=== PATIENT | female | born 1980 | race Caucasian/White ===

== ENCOUNTER 2016-12-31 06:46 | Observation (INO) | payer BC ==
[2016-12-31] MEDS ORDERED: Dexamethasone 4 MG/ML 5 ML MDV ONE (06:54)
[2016-12-31] MEDS ORDERED: Ondansetron 4 MG/2 ML SDV ONE (06:54)
[2016-12-31] MEDS ORDERED: Sodium Chloride 0.9% 10 ML ONE (06:54)
[2016-12-31] MEDS ORDERED: ceFAZolin 1 GM Vial ONE (06:54)
[2016-12-31] MEDS ORDERED: HYDROmorphone 1 MG/ML Syringe ONE ×3 (06:54→10:17)
[2016-12-31] MEDS ORDERED: Midazolam 1 MG/ML 2 ML SDV ONE (06:55)
[2016-12-31] MEDS ORDERED: fentaNYL 250 MCG/5 ML SDV ONE (06:55)
[2016-12-31] MEDS ORDERED: Propofol 200 MG/20 ML SDV ONE (06:55)
[2016-12-31] MEDS ORDERED: Rocuronium 50 MG/5 ML Vial ONE (06:56)
[2016-12-31] MEDS ORDERED: Sodium Chloride 0.9% 10 ML Syringe FLUSH PRN ×2 (07:00→10:30)
[2016-12-31] MEDS ORDERED: Lidocaine 1%/Sod Bicarbonate in NS 8.4% 1 ML Syringe IV PRN (07:00)
[2016-12-31] MEDS ORDERED: Lactated Ringers 1,000 ML IV SCH (07:00)
[2016-12-31] MEDS ORDERED: Lidocaine 1% with EPINEPHrine 1:100,000 20 ML MDV ONE (07:29)
--- NOTE | 2016-12-31 07:48 | PCM.OPNOTE ---
- General Post-Op/Procedure Note Date of Surgery/Procedure: 12/31/16 Operative Procedure(s): Total vaginal hysterectomy Findings: Mobile anteverted uterus. Limited visualization of the bilateral ovaries, but grossly normal. Pre Op Diagnosis: Heavy menstrual bleeding Post-Op Diagnosis: Same Anesthesia Technique: General ET tube Primary Surgeon: Milagro Anand Secondary Surgeon: Mckenna Henriquez Anesthesia Provider: Gris Gerber Pathology: Cervix and uterus sent to pathology Fluid Replacement, Intraop: 2,500 Output, Urine Amount: 240 EBL in mLs: 400 Complications: None Condition: Good Free Text/Narrative:: The risks, benefits, indications, potential complications, and alternatives were explained to the patient and informed consent obtained. The patient was taken to the Operating Room where general anesthesia was induced without complication and found to be adequate. The patient was placed in dorsal lithotomy with Yared stirrups and an exam under anesthesia revealed the findings detailed above. The patient was then prepped and draped in the usual sterile fashion. A fink catheter was placed into the bladder. A weighted speculum was placed in the vagina, and the cervix was grasped with a double tooth tenaculum. The cervix was injected circumferentially with 20 mL of 1% lidocaine with epinephrine. The cervix was then circumferentially incised with a scalpel. The posterior cul-de-sac was entered sharply without difficulty. An 0-Vicryl pop-off suture was placed posteriorly to include the posterior vaginal mucosa and the posterior peritoneum. The short weighted speculum was replaced with a long weighted speculum into the peritoneal cavity posteriorly. The bladder was dissected away from the pubovesical cervical fascia anteriorly with a sponge and blunt dissection. The uterosacral ligaments were grasped on either side, cauterized with the Ligasure, and transected. A raytec was used for further blunt dissection of the bladder away from the pubovesical cervical fascia and then the anterior cul de sac was entered sharply with Metzenbaum scissors. The cardinal ligaments were then serially clamped on both sides, cauterized, and transected in similar fashion. The uterine arteries were then clamped, cauterized, and transected. Hemostasis was adequate. Both cornua were then clamped, cauterized, and transected. These pedicles were also secured with a free tie of 0 vicryl. The uterus was removed. There was bleeding from the left pedicle and so this was grasped with an allis clamp and a suture of 0 vicryl was placed in a figure of eight style to secure hemostasis. The posterior peritoneum was then closed with a running, locked 0 vicryl suture. Irrigation of surgical pedicles performed again. Hemostasis seemed adequate. Marcelino-seal placed along the pedicles. The vaginal cuff was closed in a running locked fashion with 0-Vicryl. Hemostasis was noted. All sponge, lap, needle, and instrument counts were correct x 2. The patient tolerated the procedure well and there were no complications.
--- NOTE | 2016-12-31 07:54 | PCM.PREANE ---
Preanesthetic Assessment - Anesthesia/Transfusion/Family Hx Anesthesia History: Prior Anesthesia Without Reaction Type of Anesthesia Reaction: Other (see below) Family History of Anesthesia Reaction: No Type of Transfusion Reactions: Reports: Unknown - Review of Systems General: No Symptoms Pulmonary: No Symptoms, Other (smoker, asthma) Cardiovascular: No Symptoms Gastrointestinal: No symptoms Neurological: No Symptoms Other: Reports: Depression - Physical Assessment NPO Status Date: 12/31/16 NPO Status Time: 22:30 O2 Sat by Pulse Oximetry: 98 Respiratory Rate: 16 Vital Signs: Last Vital Signs Temp 36.3 C 12/31/16 07:00 Pulse 92 12/31/16 07:00 Resp 16 12/31/16 07:00 BP 141/51 H 12/31/16 07:00 Pulse Ox 98 12/31/16 07:00 Height: 1.57 m Weight: 93.894 kg ASA Class: 2 Mental Status: Alert & Oriented x3 Airway Class: Mallampati = 2 Dentition: Reports: Normal Dentition Thyro-Mental Finger Breadths: 3 Mouth Opening Finger Breadths: 3 ROM/Head Extension: Full Lungs: Clear to auscultation, Normal respiratory effort Cardiovascular: Regular Rate, Regular Rhythm - Lab Values: Laboratory Last Values WBC 9.81 K/mm3 (3.98-10.04) 12/31/16 07:15 RBC 4.70 M/mm3 (3.98-5.22) 12/31/16 07:15 Hgb 14.2 gm/L (11.2-15.7) 12/31/16 07:15 Hct 42.5 % (34.1-44.9) 12/31/16 07:15 MCV 90.4 fl (79.4-94.8) 12/31/16 07:15 MCH 30.2 pg (25.6-32.2) 12/31/16 07:15 MCHC 33.4 g/dl (32.2-35.5) 12/31/16 07:15 RDW Std Deviation 45.8 fL (36.4-46.3) 12/31/16 07:15 Plt Count 286 K/mm3 (182-369) 12/31/16 07:15 MPV 10.2 fl (9.4-12.3) 12/31/16 07:15 Neut % (Auto) 61.4 % (34.0-71.1) 12/31/16 07:15 Lymph % (Auto) 27.8 % (19.3-51.7) 12/31/16 07:15 [place] % (Auto) 8.1 % (4.7-12.5) 12/31/16 07:15 Eos % (Auto) 1.4 (0.7-5.8) 12/31/16 07:15 Baso % (Auto) 1.0 % (0.1-1.2) 12/31/16 07:15 Neut # 6.02 K/mm3 (1.56-6.13) 12/31/16 07:15 Lymph # 2.73 K/mm3 (1.18-3.74) 12/31/16 07:15 [place] # 0.79 K/mm3 (0.24-0.36) H 12/31/16 07:15 Eos # 0.14 K/mm3 (0.04-0.36) 12/31/16 07:15 Baso # 0.10 K/mm3 (0.01-0.08) H 12/31/16 07:15 Urine HCG, Qual Negative (NEGATIVE) 12/31/16 06:54 - Allergies Allergies/Adverse Reactions: Allergies Allergy/AdvReac Type Severity Reaction Status Date / Time IV Dye Allergy Rash Uncoded 12/30/16 12:31 - Blood Blood Available: No Product(s) Available: None - Anesthesia Plan Pre-Op Medication Ordered: None - Acknowledgements Anesthesia Type Planned: General Anesthesia Pt an Appropriate Candidate for the Planned Anesthesia: Yes Alternatives and Risks of Anesthesia Discussed w Pt/Guardian: Yes Pt/Guardian Understands and Agrees with Anesthesia Plan: Yes PreAnesthesia Questionnaire - Past Health History Medical/Surgical History: Denies Medical/Surgical History Respiratory History: Reports: Asthma Other Respiratory History: Moderate snoring [employer] 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 about two years ago Psychiatric History: Reports: Depression Other Dermatologic History: eczema on both medial calves - Past Surgical History Female Surgical History: Reports: Breast biopsy, Tubal ligation Musculoskeletal Surgical History: Reports: Shoulder surgery - SUBSTANCE USE Smoking Status *Q: Current Some Day Smoker Tobacco Use Within Last Twelve Months: Cigarettes Second Hand Smoke Exposure: Yes Days Per Week of Alcohol Use: 0 Number of Drinks Per Day: 0 Total Drinks Per Week: 0 Recreational Drug Use History: No - HOME MEDS Home Medications: Home Meds Venlafaxine [Effexor] 150 mg PO DAILY 02/12/14 [History] Albuterol [Ventolin HFA] 2 puff INH Q4H PRN 03/18/15 [History] oxyCODONE HCl/Acetaminophen [Percocet 5-325 mg Tablet] 1 - 2 tab PO Q6H PRN #15 tablet 04/03/15 [Rx] Zolpidem [Ambien] 5 mg PO BEDTIME 09/24/15 [History] Ketorolac [Toradol] 10 mg PO Q6H 11/04/15 [History] cloNIDine [Catapres] 0.1 mg PO Q8H 11/04/15 [History] Meloxicam [Mobic] 15 mg PO DAILY 12/30/16 [History] Naproxen Sodium [Aleve] 220 mg PO Q12HR PRN 12/30/16 [History] Venlafaxine [Effexor XR] 150 mg PO DAILY 12/30/16 [History] - CURRENT (IN HOUSE) MEDS Current Meds: Current Medications Lactated Ringer's (Ringers, Lactated) 1,000 mls @ 125 mls/hr IV ASDIRECTED WILD Stop: 12/31/16 23:00 Last Admin: 12/31/16 07:15 Dose: 125 mls/hr Lidocaine/Sodium Bicarbonate (Buffered Lidocaine 1% In Ns 8.4%) 0.25 ml IV ONETIME PRN PRN Reason: Prior to IV Start Stop: 12/31/16 18:00 Last Admin: 12/31/16 07:15 Dose: 0.25 ml Sodium Chloride (Saline Flush) 10 ml FLUSH ASDIRECTED PRN PRN Reason: Keep Vein Open Stop: 12/31/16 18:00 Discontinued Medications Cefazolin Sodium (Ancef) Confirm Administered Dose 2 gm .ROUTE .STK-MED ONE Stop: 12/31/16 06:55 Dexamethasone (Dexamethasone) Confirm Administered Dose 20 mg .ROUTE .STK-MED ONE Stop: 12/31/16 06:55 Fentanyl (Sublimaze) Confirm Administered Dose 250 mcg .ROUTE .STK-MED ONE Stop: 12/31/16 06:56 Hydromorphone HCl (Dilaudid) Confirm Administered Dose 1 mg .ROUTE .[facility] ONE Stop: 12/31/16 06:55 Sodium Chloride (Normal Saline) Confirm Administered Dose 10 mls @ as directed .ROUTE .STK-MED ONE Stop: 12/31/16 06:55 Lidocaine/Epinephrine (Xylocaine 1% With Epinephrine 1:100,000) Confirm Administered Dose 20 ml .ROUTE .[facility]-MED ONE Stop: 12/31/16 07:30 Midazolam HCl (Versed 1 Mg/Ml) Confirm Administered Dose 2 mg .ROUTE .[facility] ONE Stop: 12/31/16 06:56 Ondansetron HCl (Zofran) Confirm Administered Dose 4 mg .ROUTE .[facility] ONE Stop: 12/31/16 06:55 Propofol (Diprivan 20 Ml) Confirm Administered Dose 200 mg .ROUTE .[facility] ONE Stop: 12/31/16 06:56 Rocuronium [place] (Zemuron) Confirm Administered Dose 50 mg .ROUTE .[facility] ONE Stop: 12/31/16 06:57 Preanesthetic Assessment - ANESTHESIA/TRANSFUSION/FAMILY HX Anesthesia/Transfusion History: Prior Anesthesia Family History of Anesthesia Reaction: No Intubation History: Unknown - PHYSICAL ASSESSMENT O2 Sat by Pulse Oximetry: 98 RR: 16 Vital Signs: Last Vital Signs Temp 36.3 C 12/31/16 07:00 Pulse 92 12/31/16 07:00 Resp 16 12/31/16 07:00 BP 141/51 H 12/31/16 07:00 Pulse Ox 98 12/31/16 07:00 Height: 1.57 m Weight: 93.894 kg NPO Status Date: 12/31/16 NPO Status Time: 22:30 - LAB Values: Laboratory Last Values WBC 9.81 K/mm3 (3.98-10.04) 12/31/16 07:15 RBC 4.70 M/mm3 (3.98-5.22) 12/31/16 07:15 Hgb 14.2 gm/L (11.2-15.7) 12/31/16 07:15 Hct 42.5 % (34.1-44.9) 12/31/16 07:15 MCV 90.4 fl (79.4-94.8) 12/31/16 07:15 MCH 30.2 pg (25.6-32.2) 12/31/16 07:15 MCHC 33.4 g/dl (32.2-35.5) 12/31/16 07:15 RDW Std Deviation 45.8 fL (36.4-46.3) 12/31/16 07:15 Plt Count 286 K/mm3 (182-369) 12/31/16 07:15 MPV 10.2 fl (9.4-12.3) 12/31/16 07:15 Neut % (Auto) 61.4 % (34.0-71.1) 12/31/16 07:15 Lymph % (Auto) 27.8 % (19.3-51.7) 12/31/16 07:15 [place] % (Auto) 8.1 % (4.7-12.5) 12/31/16 07:15 Eos % (Auto) 1.4 (0.7-5.8) 12/31/16 07:15 Baso % (Auto) 1.0 % (0.1-1.2) 12/31/16 07:15 Neut # 6.02 K/mm3 (1.56-6.13) 12/31/16 07:15 Lymph # 2.73 K/mm3 (1.18-3.74) 12/31/16 07:15 [place] # 0.79 K/mm3 (0.24-0.36) H 12/31/16 07:15 Eos # 0.14 K/mm3 (0.04-0.36) 12/31/16 07:15 Baso # 0.10 K/mm3 (0.01-0.08) H 12/31/16 07:15 Urine HCG, Qual Negative (NEGATIVE) 12/31/16 06:54 - ALLERGIES Allergies/Adverse Reactions: Allergies Allergy/AdvReac Type Severity Reaction Status Date / Time IV Dye Allergy Rash Uncoded 12/30/16 12:31
[2016-12-31] MEDS ORDERED: Lactated Ringers 1,000 ML ONE (08:40)
[2016-12-31] MEDS ORDERED: fentaNYL 100 MCG/2 ML SDV IVPUSH PRN (08:51)
[2016-12-31] MEDS ORDERED: Metoclopramide 10 MG/2 ML SDV IVPUSH PRN (08:51)
[2016-12-31] MEDS ORDERED: HYDROmorphone 0.5 MG/0.5 ML Syringe IVPUSH PRN (08:51)
[2016-12-31] MEDS ORDERED: Ondansetron 4 MG/2 ML SDV IVPUSH PRN ×2 (08:51→10:26)
[2016-12-31] MEDS ORDERED: Ketamine 500 mg/10 ML MDV ONE (09:00)
[2016-12-31] MEDS ORDERED: fentaNYL 100 MCG/2 ML SDV ONE (10:07)
--- NOTE | 2016-12-31 10:30 | PCM.POSTAN ---
POST ANESTHESIA ASSESSMENT - MENTAL STATUS Mental Status: alert, oriented - VITAL SIGNS Pulse Rate: 111 SaO2: 96 Resp Rate: 16 Blood Pressure: 142/96 Temperature: 36.5 C - RESPIRATORY Respiratory Status: respiratory rate WNL, airway patent, O2 saturation stable - CARDIOVASCULAR CV Status: pulse rate WNL, blood pressure stable - GASTROINTESTINAL GI Status: no symptoms - PAIN Pain Score: 5 (fentanyl given) - POST OP HYDRATION Hydration Status: adequate & stable
[2016-12-31] MEDS ORDERED: diphenhydrAMINE 50 MG/ML SDV IVPUSH ONE (11:04)
[2016-12-31] MEDS: diphenhydrAMINE 50 MG/ML SDV ONE ×2 (11:08→14:08)
[2016-12-31] MEDS: Albuterol/Ipratropium 3.0-0.5 MG/3 ML Neb Soln NEB SCH ×3 (12:30→21:50)
[2016-12-31] MEDS: Acetaminophen/oxyCODONE 325-5 MG Tab PO PRN ×3 (13:00→21:51)
[2016-12-31] MEDS ORDERED: Venlafaxine 150 MG Cap.ER PO SCH (13:15)
[2016-12-31] MEDS: Morphine 2 MG/ML Syringe IVPUSH PRN ×3 (15:38→21:03)
[2016-12-31] MEDS ORDERED: Docusate Sodium 100 MG Cap PO SCH (21:00)
[2017-01-01] MEDS: Morphine 2 MG/ML Syringe IVPUSH PRN ×2 (00:25→02:31)
[2017-01-01] MEDS: Acetaminophen/oxyCODONE 325-5 MG Tab PO PRN ×2 (02:30→06:17)
[2017-01-01] MEDS: Albuterol/Ipratropium 3.0-0.5 MG/3 ML Neb Soln NEB SCH (06:53)
--- NOTE | 2017-01-01 07:17 | PCM.SURGPN ---
- General Info Date of Service: 01/01/17 POD#: 1 Functional Status: Reports: pain controlled, tolerating diet, ambulating, urinating - Review of Systems General: Reports: No Symptoms Pulmonary: Reports: no symptoms Cardiovascular: Reports: No Symptoms Gastrointestinal: Reports: Abdominal pain Genitourinary: Reports: no symptoms Musculoskeletal: Reports: no symptoms - Patient Data Vitals - most recent: Last Vital Signs Temp 36.6 C 01/01/17 00:17 Pulse 84 01/01/17 06:55 Resp 18 01/01/17 00:17 BP 129/52 L 01/01/17 00:17 Pulse Ox 91 L 01/01/17 00:17 Weight - most recent: 96.162 kg I&O - last 24 hours: Intake & Output 12/31/16 01/01/17 01/01/17 22:59 06:59 14:59 Intake Total 520 Output Total 1850 1400 Balance -1330 -1400 Lab Results last 24 hrs: Laboratory Results - last 24 hr 12/31/16 12/31/16 12/31/16 Range/Units 07:15 07:15 07:15 WBC 9.81 (3.98-10.04) K/mm3 RBC 4.70 (3.98-5.22) M/mm3 Hgb 14.2 (11.2-15.7) gm/L Hct 42.5 (34.1-44.9) % MCV 90.4 (79.4-94.8) fl MCH 30.2 (25.6-32.2) pg MCHC 33.4 (32.2-35.5) g/dl RDW Std Deviation 45.8 (36.4-46.3) fL Plt Count 286 (182-369) K/mm3 MPV 10.2 (9.4-12.3) fl Neut % (Auto) 61.4 (34.0-71.1) % Lymph % (Auto) 27.8 (19.3-51.7) % [place] % (Auto) 8.1 (4.7-12.5) % Eos % (Auto) 1.4 (0.7-5.8) Baso % (Auto) 1.0 (0.1-1.2) % Neut # 6.02 (1.56-6.13) K/mm3 Lymph # 2.73 (1.18-3.74) K/mm3 [place] # 0.79 H (0.24-0.36) K/mm3 Eos # 0.14 (0.04-0.36) K/mm3 Baso # 0.10 H (0.01-0.08) K/mm3 Sodium 139 (136-145) mEq/L Potassium 4.2 (3.5-5.1) mEq/L Chloride 104 (98-107) mEq/L Carbon Dioxide 26 (21-32) mEq/L Anion Gap 13.2 (5-15) BUN 15 (7-18) mg/dL Creatinine 1.0 (0.55-1.02) mg/dL Est Cr Clr Drug Dosing 60.33 mL/min Estimated GFR (MDRD) > 60 (>60) mL/min BUN/Creatinine Ratio 15.0 (14-18) Glucose 108 H (74-106) mg/dL Calcium 8.7 (8.5-10.1) mg/dL Blood Type A POSITIVE Gel Antibody Screen Negative 12/31/16 01/01/17 01/01/17 Range/Units 20:05 05:02 05:02 WBC 18.22 H 21.98 H (3.98-10.04) K/mm3 RBC 4.27 4.38 (3.98-5.22) M/mm3 Hgb 12.8 13.1 (11.2-15.7) gm/L Hct 39.4 41.2 (34.1-44.9) % MCV 92.3 94.1 (79.4-94.8) fl MCH 30.0 29.9 (25.6-32.2) pg MCHC 32.5 31.8 L (32.2-35.5) g/dl RDW Std Deviation 46.1 47.1 H (36.4-46.3) fL Plt Count 270 302 (182-369) K/mm3 MPV 9.9 10.6 (9.4-12.3) fl Neut % (Auto) (34.0-71.1) % Lymph % (Auto) (19.3-51.7) % [place] % (Auto) (4.7-12.5) % Eos % (Auto) (0.7-5.8) Baso % (Auto) (0.1-1.2) % Neut # (1.56-6.13) K/mm3 Lymph # (1.18-3.74) K/mm3 [place] # (0.24-0.36) K/mm3 Eos # (0.04-0.36) K/mm3 Baso # (0.01-0.08) K/mm3 Sodium 141 (136-145) mEq/L Potassium 4.5 (3.5-5.1) mEq/L Chloride 105 (98-107) mEq/L Carbon Dioxide 30 (21-32) mEq/L Anion Gap 10.5 (5-15) BUN 12 (7-18) mg/dL Creatinine 0.9 (0.55-1.02) mg/dL Est Cr Clr Drug Dosing 67.03 mL/min Estimated GFR (MDRD) > 60 (>60) mL/min BUN/Creatinine Ratio 13.3 L (14-18) Glucose 113 H (74-106) mg/dL Calcium 8.7 (8.5-10.1) mg/dL Blood Type Gel Antibody Screen Med Orders - Current: Current Medications Albuterol/Ipratropium (Duoneb 3.0-0.5 Mg/3 Ml) 3 ml NEB Q6HRRT [facility] Last Admin: 01/01/17 06:53 Dose: 3 ml Docusate Sodium (Colace) 100 mg PO BID [facility] Last Admin: 12/31/16 21:03 Dose: 100 mg Metoclopramide HCl (Reglan) 10 mg IVPUSH ONETIME PRN PRN Reason: Nausea/Vomiting Morphine Sulfate (Morphine) 1 mg IVPUSH Q2H PRN PRN Reason: Pain (severe 7-10) Last Admin: 01/01/17 02:31 Dose: 1 mg Ondansetron HCl (Zofran) 4 mg IVPUSH Q4H PRN PRN Reason: Nausea/Vomiting Oxycodone/Acetaminophen (Percocet 325-5 Mg) 2 tab PO Q4H PRN PRN Reason: Pain (moderate 4-6) Last Admin: 01/01/17 06:17 Dose: 2 tab Venlafaxine 150 Mg (Cap.Er) 0 each PO DAILY [facility] Last Admin: 12/31/16 14:08 Dose: 1 each Sodium Chloride (Saline Flush) 10 ml FLUSH ASDIRECTED PRN PRN Reason: Keep Vein Open Discontinued Medications Cefazolin Sodium (Ancef) Confirm Administered Dose 2 gm .ROUTE .STK-MED ONE Stop: 12/31/16 06:55 Dexamethasone (Dexamethasone) Confirm Administered Dose 20 mg .ROUTE .ST-MED ONE Stop: 12/31/16 06:55 Diphenhydramine HCl (Benadryl) Confirm Administered Dose 50 mg .ROUTE .ST-MED ONE Stop: 12/31/16 10:58 Last Admin: 12/31/16 14:08 Dose: Not Given Diphenhydramine HCl (Benadryl) 25 mg IVPUSH ONETIME ONE Stop: 12/31/16 11:05 Last Admin: 12/31/16 11:00 Dose: 25 mg Fentanyl (Sublimaze) Confirm Administered Dose 250 mcg .ROUTE .ST-MED ONE Stop: 12/31/16 06:56 Fentanyl (Sublimaze) 50 mcg IVPUSH Q5M PRN PRN Reason: pain Last Admin: 12/31/16 10:48 Dose: 50 mcg Fentanyl (Sublimaze) Confirm Administered Dose 100 mcg .ROUTE .ST-MED ONE Stop: 12/31/16 10:08 Hydromorphone HCl (Dilaudid) Confirm Administered Dose 1 mg .ROUTE .ST-MED ONE Stop: 12/31/16 06:55 Hydromorphone HCl (Dilaudid) Confirm Administered Dose 1 mg .ROUTE .STK-MED ONE Stop: 12/31/16 08:41 Hydromorphone HCl (Dilaudid) 0.5 mg IVPUSH Q15M PRN PRN Reason: Pain (severe 7-10) Stop: 12/31/16 09:07 Hydromorphone HCl (Dilaudid) Confirm Administered Dose 1 mg .ROUTE .ST-MED ONE Stop: 12/31/16 10:18 Lactated Ringer's (Ringers, Lactated) 1,000 mls @ 125 mls/hr IV ASDIRECTED WILD Stop: 12/31/16 23:00 Last Admin: 12/31/16 07:15 Dose: 125 mls/hr Sodium Chloride (Normal Saline) Confirm Administered Dose 10 mls @ as directed .ROUTE .ST-MED ONE Stop: 12/31/16 06:55 Lactated Ringer's (Ringers, Lactated) Confirm Administered Dose 1,000 mls @ as directed .ROUTE .STK-MED ONE Stop: 12/31/16 08:41 Ketamine HCl (Ketalar) Confirm Administered Dose 500 mg .ROUTE .STK-MED ONE Stop: 12/31/16 09:01 Lidocaine/Epinephrine (Xylocaine 1% With Epinephrine 1:100,000) Confirm Administered Dose 20 ml .ROUTE .STK-MED ONE Stop: 12/31/16 07:30 Last Admin: 12/31/16 08:43 Dose: 15 ml Lidocaine/Sodium Bicarbonate (Buffered Lidocaine 1% In Ns 8.4%) 0.25 ml IV ONETIME PRN PRN Reason: Prior to IV Start Stop: 12/31/16 18:00 Last Admin: 12/31/16 07:15 Dose: 0.25 ml Midazolam HCl (Versed 1 Mg/Ml) Confirm Administered Dose 2 mg .ROUTE .STK-MED ONE Stop: 12/31/16 06:56 Ondansetron HCl (Zofran) Confirm Administered Dose 4 mg .ROUTE .STK-MED ONE Stop: 12/31/16 06:55 Ondansetron HCl (Zofran) 4 mg IVPUSH ONETIME PRN PRN Reason: Nausea/Vomiting Propofol (Diprivan 20 Ml) Confirm Administered Dose 200 mg .ROUTE .STK-MED ONE Stop: 12/31/16 06:56 Rocuronium [place] (Zemuron) Confirm Administered Dose 50 mg .ROUTE .STK-MED ONE Stop: 12/31/16 06:57 Sodium Chloride (Saline Flush) 10 ml FLUSH ASDIRECTED PRN PRN Reason: Keep Vein Open Stop: 12/31/16 18:00 - Exam General: alert, oriented, cooperative Lungs: Clear to auscultation, Normal respiratory effort Cardiovascular: Regular Rate, Regular Rhythm Abdomen: soft, no distension, tenderness (appropriate post op). No: rebound, guarding Extremities: no edema Skin: warm, dry, intact - Problem List & Annotations (1) Menorrhagia SNOMED Code(s): 337827358 Code(s): N92.0 - EXCESSIVE AND FREQUENT MENSTRUATION WITH REGULAR CYCLE Status: Acute Qualifiers: Menorrahagia type: premenopausal Qualified Code(s): N92.4 - Excessive bleeding in the premenopausal period (2) S/P vaginal hysterectomy SNOMED Code(s): 935124861, 546771873 Code(s): Z90.710 - ACQUIRED ABSENCE OF BOTH CERVIX AND UTERUS Status: Acute - Problem List Review Problem List Initiated/Reviewed/Updated: Yes - My Orders Last 24 Hours: Active Orders 24 hr Category Date Time Status Patient Status [ADT] Routine ADT 12/31/16 10:26 Active Antiembolic Devices [RC] PER UNIT ROUTINE Care 12/31/16 10:28 Active Intake and Output [RC] Q4HR Care 12/31/16 10:27 Active RT Aerosol Therapy [RC] .PRN Care 12/31/16 10:32 Active Ready for Discharge [RC] PER UNIT ROUTINE Care 01/01/17 07:16 Ordered Up ad Shu [RC] PER UNIT ROUTINE Care 12/31/16 10:27 Active Vital Signs [RC] Q4HR Care 12/31/16 10:26 Active Clear Liquid Diet [DIET] Diet 12/31/16 Lunch Active Regular Diet [DIET] Diet 12/31/16 Lunch Active PATIENT RETYPE [BBK] Routine Lab 12/31/16 07:15 Results TYPE AND SCREEN [BBK] Routine Lab 12/31/16 07:15 Results Acetaminophen/oxyCODONE [Percocet 325-5 MG] Med 12/31/16 10:26 Active 2 tab PO Q4H PRN Albuterol/Ipratropium [DuoNeb 3.0-0.5 MG/3 ML] Med 12/31/16 12:00 Active 3 ml NEB Q6HRRT Docusate Sodium [Colace] Med 12/31/16 21:00 Active 100 mg PO BID Metoclopramide [Reglan] Med 12/31/16 08:51 Active 10 mg IVPUSH ONETIME PRN Morphine Med 12/31/16 10:26 Active 1 mg IVPUSH Q2H PRN Ondansetron [Zofran] Med 12/31/16 10:26 Active 4 mg IVPUSH Q4H PRN Patient's Own Medication [Ptom] Med 12/31/16 13:15 Active 0 each PO DAILY Sodium Chloride 0.9% [Saline Flush] Med 12/31/16 10:30 Active 10 ml FLUSH ASDIRECTED PRN Convert IV to Saline Lock [OM.PC] Routine Oth 12/31/16 10:30 Ordered Medication Administration Instruction [OM.PC] Routine Oth 12/31/16 07:00 Ordered Peripheral IV Insertion Adult [OM.PC] Routine Oth 12/31/16 07:00 Ordered Sequential Compression Device [OM.PC] Per Unit Routine Oth 12/31/16 10:27 Ordered Resuscitation Status Routine Resus Stat 12/31/16 10:26 Ordered Medication Orders Albuterol/Ipratropium (Duoneb 3.0-0.5 Mg/3 Ml) 3 ml NEB Q6HRRT [facility] Last Admin: 01/01/17 06:53 Dose: 3 ml Admin: 12/31/16 21:50 Dose: 3 ml Admin: 12/31/16 17:41 Dose: 3 ml Admin: 12/31/16 12:30 Dose: 3 ml Docusate Sodium (Colace) 100 mg PO BID [facility] Last Admin: 12/31/16 21:03 Dose: 100 mg Metoclopramide HCl (Reglan) 10 mg IVPUSH ONETIME PRN PRN Reason: Nausea/Vomiting Morphine Sulfate (Morphine) 1 mg IVPUSH Q2H PRN PRN Reason: Pain (severe 7-10) Last Admin: 01/01/17 02:31 Dose: 1 mg Admin: 01/01/17 00:25 Dose: 1 mg Admin: 12/31/16 21:03 Dose: 1 mg Admin: 12/31/16 18:49 Dose: 1 mg Admin: 12/31/16 15:38 Dose: 1 mg Ondansetron HCl (Zofran) 4 mg IVPUSH Q4H PRN PRN Reason: Nausea/Vomiting Oxycodone/Acetaminophen (Percocet 325-5 Mg) 2 tab PO Q4H PRN PRN Reason: Pain (moderate 4-6) Last Admin: 01/01/17 06:17 Dose: 2 tab Admin: 01/01/17 02:30 Dose: 2 tab Admin: 12/31/16 21:51 Dose: 2 tab Admin: 12/31/16 17:45 Dose: 2 tab Admin: 12/31/16 13:00 Dose: 2 tab Venlafaxine 150 Mg (Cap.Er) 0 each PO DAILY [facility] Last Admin: 12/31/16 14:08 Dose: 1 each Sodium Chloride (Saline Flush) 10 ml FLUSH ASDIRECTED PRN PRN Reason: Keep Vein Open - Assessment Assessment (Free Text/Narrative):: 36 y/o woman POD#1 from [facility] for heavy menstrual bleeding - Plan Plan (Free Text/Narrative):: Patient kept overnight due to EBL which was thought to be ~400 cc. Starting Hb was 14 and last night down to 12. This morning back to 13. Overall stable and less than anticipated drop. VS stable and UOP more than adequate. Will discharge to home. Will follow up in clinic in 1 week.
--- NOTE | 2017-01-01 07:17 | PCM.DCSUM1 ---
Discharge Summary - Discharge Data Discharge Date: 01/01/17 Discharge Disposition: Home, Self-Care 01 Condition: Good - Discharge Diagnosis/Problem(s) (1) Menorrhagia SNOMED Code(s): 637866669 ICD Code: N92.0 - EXCESSIVE AND FREQUENT MENSTRUATION WITH REGULAR CYCLE Status: Acute Qualifiers: Menorrahagia type: premenopausal Qualified Code(s): N92.4 - Excessive bleeding in the premenopausal period (2) S/P vaginal hysterectomy SNOMED Code(s): 591941144, [id number] ICD Code: Z90.710 - ACQUIRED ABSENCE OF BOTH CERVIX AND UTERUS Status: Acute - Patient Summary/Data Operative Procedure(s) Performed: Total vaginal hysterectomy Complications: None Consults: None Recommended Follow-up Testing/Procedures: Follow up with Dr. Aannd in 1 week Hospital Course: 36 y/o woman admitted for planned TVH. This was notable for an estimated 400 cc EBL. Due to this higher EBL she was kept for observation. Her blood count remained stable and she did well. She was thus discharged home on POD#1. - Patient Instructions Diet: Regular Diet as Tolerated Activity: No Lifting Over 10 Pounds Activity, Other: Pelvic rest for 6 weeks Driving: Do Not Drive (While taking narcotics ) Showering/Bathing: May Shower, No Tub Bathing/Swimming Notify Provider of: Fever, Increased Pain, Swelling and Redness, Drainage, Nausea and/or Vomiting - Discharge Plan Prescriptions/Med Rec: Acetaminophen/oxyCODONE [Percocet 325-5 MG] 2 tab PO Q4H PRN #30 tablet PRN Reason: Pain Home Medications: Home Meds Albuterol [Ventolin HFA] 2 puff INH Q4H PRN 03/18/15 [History] Meloxicam [Mobic] 15 mg PO DAILY 12/30/16 [History] Venlafaxine [Effexor XR] 150 mg PO DAILY 12/30/16 [History] Acetaminophen/oxyCODONE [Percocet 325-5 MG] 2 tab PO Q4H PRN #30 tablet [Rx] Docusate Sodium [Colace] 100 mg PO BID cap 12/31/16 [Rx] Patient Handouts: Laparoscopically Assisted Vaginal Hysterectomy, Care After, Hysterectomy Information, [id number] Referrals: Milagro Anand MD [Primary Care Provider] - (1 week for early post op check. Call to schedule appointment.) - Discharge Summary/Plan Comment DC Time >30 min.: No - Patient Data Vitals - Most Recent: Last Vital Signs Temp 36.6 C 01/01/17 00:17 Pulse 84 01/01/17 06:55 Resp 18 01/01/17 00:17 BP 129/52 L 01/01/17 00:17 Pulse Ox 91 L 01/01/17 00:17 Weight - Most Recent: 96.162 kg I&O - Last 24 hours: Intake & Output 12/31/16 01/01/17 01/01/17 22:59 06:59 14:59 Intake Total 520 Output Total 1850 1400 Balance -1330 -1400 Lab Results - Last 24 hrs: Laboratory Results - last 24 hr 12/31/16 12/31/16 12/31/16 Range/Units 07:15 07:15 07:15 WBC 9.81 (3.98-10.04) K/mm3 RBC 4.70 (3.98-5.22) M/mm3 Hgb 14.2 (11.2-15.7) gm/L Hct 42.5 (34.1-44.9) % MCV 90.4 (79.4-94.8) fl MCH 30.2 (25.6-32.2) pg MCHC 33.4 (32.2-35.5) g/dl RDW Std Deviation 45.8 (36.4-46.3) fL Plt Count 286 (182-369) K/mm3 MPV 10.2 (9.4-12.3) fl Neut % (Auto) 61.4 (34.0-71.1) % Lymph % (Auto) 27.8 (19.3-51.7) % Glynn % (Auto) 8.1 (4.7-12.5) % Eos % (Auto) 1.4 (0.7-5.8) Baso % (Auto) 1.0 (0.1-1.2) % Neut # 6.02 (1.56-6.13) K/mm3 Lymph # 2.73 (1.18-3.74) K/mm3 Glynn # 0.79 H (0.24-0.36) K/mm3 Eos # 0.14 (0.04-0.36) K/mm3 Baso # 0.10 H (0.01-0.08) K/mm3 Sodium 139 (136-145) mEq/L Potassium 4.2 (3.5-5.1) mEq/L Chloride 104 (98-107) mEq/L Carbon Dioxide 26 (21-32) mEq/L Anion Gap 13.2 (5-15) BUN 15 (7-18) mg/dL Creatinine 1.0 (0.55-1.02) mg/dL Est Cr Clr Drug Dosing 60.33 mL/min Estimated GFR (MDRD) > 60 (>60) mL/min BUN/Creatinine Ratio 15.0 (14-18) Glucose 108 H (74-106) mg/dL Calcium 8.7 (8.5-10.1) mg/dL Blood Type A POSITIVE Gel Antibody Screen Negative 12/31/16 01/01/17 01/01/17 Range/Units 20:05 05:02 05:02 WBC 18.22 H 21.98 H (3.98-10.04) K/mm3 RBC 4.27 4.38 (3.98-5.22) M/mm3 Hgb 12.8 13.1 (11.2-15.7) gm/L Hct 39.4 41.2 (34.1-44.9) % MCV 92.3 94.1 (79.4-94.8) fl MCH 30.0 29.9 (25.6-32.2) pg MCHC 32.5 31.8 L (32.2-35.5) g/dl RDW Std Deviation 46.1 47.1 H (36.4-46.3) fL Plt Count 270 302 (182-369) K/mm3 MPV 9.9 10.6 (9.4-12.3) fl Neut % (Auto) (34.0-71.1) % Lymph % (Auto) (19.3-51.7) % Glynn % (Auto) (4.7-12.5) % Eos % (Auto) (0.7-5.8) Baso % (Auto) (0.1-1.2) % Neut # (1.56-6.13) K/mm3 Lymph # (1.18-3.74) K/mm3 Glynn # (0.24-0.36) K/mm3 Eos # (0.04-0.36) K/mm3 Baso # (0.01-0.08) K/mm3 Sodium 141 (136-145) mEq/L Potassium 4.5 (3.5-5.1) mEq/L Chloride 105 (98-107) mEq/L Carbon Dioxide 30 (21-32) mEq/L Anion Gap 10.5 (5-15) BUN 12 (7-18) mg/dL Creatinine 0.9 (0.55-1.02) mg/dL Est Cr Clr Drug Dosing 67.03 mL/min Estimated GFR (MDRD) > 60 (>60) mL/min BUN/Creatinine Ratio 13.3 L (14-18) Glucose 113 H (74-106) mg/dL Calcium 8.7 (8.5-10.1) mg/dL Blood Type Gel Antibody Screen Med Orders - Current: Current Medications Albuterol/Ipratropium (Duoneb 3.0-0.5 Mg/3 Ml) 3 ml NEB Q6HRRT [facility] Last Admin: 01/01/17 06:53 Dose: 3 ml Docusate Sodium (Colace) 100 mg PO BID [facility] Last Admin: 12/31/16 21:03 Dose: 100 mg Metoclopramide HCl (Reglan) 10 mg IVPUSH ONETIME PRN PRN Reason: Nausea/Vomiting Morphine Sulfate (Morphine) 1 mg IVPUSH Q2H PRN PRN Reason: Pain (severe 7-10) Last Admin: 01/01/17 02:31 Dose: 1 mg Ondansetron HCl (Zofran) 4 mg IVPUSH Q4H PRN PRN Reason: Nausea/Vomiting Oxycodone/Acetaminophen (Percocet 325-5 Mg) 2 tab PO Q4H PRN PRN Reason: Pain (moderate 4-6) Last Admin: 01/01/17 06:17 Dose: 2 tab Venlafaxine 150 Mg (Cap.Er) 0 each PO DAILY [facility] Last Admin: 12/31/16 14:08 Dose: 1 each Sodium Chloride (Saline Flush) 10 ml FLUSH ASDIRECTED PRN PRN Reason: Keep Vein Open Discontinued Medications Cefazolin Sodium (Ancef) Confirm Administered Dose 2 gm .ROUTE .STK-MED ONE Stop: 12/31/16 06:55 Dexamethasone (Dexamethasone) Confirm Administered Dose 20 mg .ROUTE .STK-MED ONE Stop: 12/31/16 06:55 Diphenhydramine HCl (Benadryl) Confirm Administered Dose 50 mg .ROUTE .STK-MED ONE Stop: 12/31/16 10:58 Last Admin: 12/31/16 14:08 Dose: Not Given Diphenhydramine HCl (Benadryl) 25 mg IVPUSH ONETIME ONE Stop: 12/31/16 11:05 Last Admin: 12/31/16 11:00 Dose: 25 mg Fentanyl (Sublimaze) Confirm Administered Dose 250 mcg .ROUTE .STK-MED ONE Stop: 12/31/16 06:56 Fentanyl (Sublimaze) 50 mcg IVPUSH Q5M PRN PRN Reason: pain Last Admin: 12/31/16 10:48 Dose: 50 mcg Fentanyl (Sublimaze) Confirm Administered Dose 100 mcg .ROUTE .STK-MED ONE Stop: 12/31/16 10:08 Hydromorphone HCl (Dilaudid) Confirm Administered Dose 1 mg .ROUTE .STK-MED ONE Stop: 12/31/16 06:55 Hydromorphone HCl (Dilaudid) Confirm Administered Dose 1 mg .ROUTE .STK-MED ONE Stop: 12/31/16 08:41 Hydromorphone HCl (Dilaudid) 0.5 mg IVPUSH Q15M PRN PRN Reason: Pain (severe 7-10) Stop: 12/31/16 09:07 Hydromorphone HCl (Dilaudid) Confirm Administered Dose 1 mg .ROUTE .STK-MED ONE Stop: 12/31/16 10:18 Lactated Ringer's (Ringers, Lactated) 1,000 mls @ 125 mls/hr IV ASDIRECTED WILD Stop: 12/31/16 23:00 Last Admin: 12/31/16 07:15 Dose: 125 mls/hr Sodium Chloride (Normal Saline) Confirm Administered Dose 10 mls @ as directed .ROUTE .STK-MED ONE Stop: 12/31/16 06:55 Lactated Ringer's (Ringers, Lactated) Confirm Administered Dose 1,000 mls @ as directed .ROUTE .STK-MED ONE Stop: 12/31/16 08:41 Ketamine HCl (Ketalar) Confirm Administered Dose 500 mg .ROUTE .STK-MED ONE Stop: 12/31/16 09:01 Lidocaine/Epinephrine (Xylocaine 1% With Epinephrine 1:100,000) Confirm Administered Dose 20 ml .ROUTE .STK-MED ONE Stop: 12/31/16 07:30 Last Admin: 12/31/16 08:43 Dose: 15 ml Lidocaine/Sodium Bicarbonate (Buffered Lidocaine 1% In Ns 8.4%) 0.25 ml IV ONETIME PRN PRN Reason: Prior to IV Start Stop: 12/31/16 18:00 Last Admin: 12/31/16 07:15 Dose: 0.25 ml Midazolam HCl (Versed 1 Mg/Ml) Confirm Administered Dose 2 mg .ROUTE .STK-MED ONE Stop: 12/31/16 06:56 Ondansetron HCl (Zofran) Confirm Administered Dose 4 mg .ROUTE .STK-MED ONE Stop: 12/31/16 06:55 Ondansetron HCl (Zofran) 4 mg IVPUSH ONETIME PRN PRN Reason: Nausea/Vomiting Propofol (Diprivan 20 Ml) Confirm Administered Dose 200 mg .ROUTE .STK-MED ONE Stop: 12/31/16 06:56 Rocuronium Sheldon (Zemuron) Confirm Administered Dose 50 mg .ROUTE .STK-MED ONE Stop: 12/31/16 06:57 Sodium Chloride (Saline Flush) 10 ml FLUSH ASDIRECTED PRN PRN Reason: Keep Vein Open Stop: 12/31/16 18:00 *Q Meaningful Use (DIS) - VTE *Q VTE Criteria *Q: - Stroke *Q Stroke Criteria *Q: - AMI *Q AMI Criteria *Q:
[2017-01-01 08:31] VITALS: BP 121/72
--- NOTE | 2017-01-01 10:21 | PCM48HPAN ---
Post Anesthesia Note - EVALUATION WITHIN 48HRS OF ANESTHETIC Vital Signs in Normal Range: Yes Patient Participated in Evaluation: No (Pt discharged home.) Respiratory Function Stable: Yes Airway Patent: Yes Cardiovascular Function Stable: Yes Hydration Status Stable: Yes Pain Control Satisfactory: Yes Nausea and Vomiting Control Satisfactory: Yes Mental Status Recovered: Yes - COMMENTS/OBSERVATIONS Free Text/Narrative:: Pt was doing well via nurses. Patient was discharged at about 0830 this am.
== END 2017-01-01 08:30 | disposition home or self-care (01) ==
LOC: JD.SDS 06:46 → JD.OB 10:26
PROVIDERS: ADMIT Obstetrics & Gynecology; ATTEND Obstetrics & Gynecology
PROC: 0UT97ZZ Resection of Uterus, Via Natural or Artificial Opening (ICD-10-PCS; principal; 2016-12-31)
PROC: 0UTC7ZZ Resection of Cervix, Via Natural or Artificial Opening (ICD-10-PCS; 2016-12-31)
DX: N92.4 Excessive bleeding in the premenopausal period (principal); N94.6 Dysmenorrhea, unspecified; F17.210 Nicotine dependence, cigarettes, uncomplicated; F32.9 Major depressive disorder, single episode, unspecified; J45.909 Unspecified asthma, uncomplicated; N85.4 Malposition of uterus; Z90.710 Acquired absence of both cervix and uterus
CPT/HCPCS: 36415; 58260; 80048; 81025; 85025; 85027; 86850; 86900; 86901; 88307; 94640; 94664; A9270; G0378; J0690; J1100; J1170; J1200; J2250; J2270; J2405; J3010; J7120; 00944; J2704

== ENCOUNTER 2017-01-20 10:51 | Emergency (ER) | payer BC ==
[2017-01-20] MEDS ORDERED: methylPREDNISolone Sodium Succinate 125 MG/2 ML SDV IVPUSH ONE ×2 (11:01→11:16)
[2017-01-20] MEDS ORDERED: diphenhydrAMINE 50 MG/ML SDV IVPUSH ONE ×2 (11:03→11:14)
[2017-01-20] MEDS ORDERED: Famotidine 20 MG/2 ML SDV IVPUSH ONE (11:03)
--- NOTE | 2017-01-20 11:22 | EDM.PDOC ---
ED HPI Allergic Reaction - General Chief Complaint: Allergic Reaction Stated Complaint: Reaction to IV contrast Time Seen by Provider: 01/20/17 11:05 Source of Information: Reports: Patient, RN notes reviewed History Limitations: Reports: No limitations - History of Present Illness INITIAL COMMENTS - FREE TEXT/NARRATIVE: 36 year old female sent from [facility] for evaluation and treatment of reaction to IV contrast. She saw Melody Navarro [facility] MASTER at [place] [facility] today for abdominal pain. CT scan of abdomen was ordered. She has a known allergy to IV contrast and was pre-medicated with Prednisone 50mg PO and Benadryl. The dose of Benadryl is unknown. She developed itching immediately after the scan. She reports her throat feeling tight when she swallows. No shortness of breath, wheezing, cough, stridor, or rash. Her IV site is mildly red and itchy as well. She says her symptoms are similar to her previous reaction to IV contrast. - Related Data Allergies/ADRs: Allergies Allergy/AdvReac Type Severity Reaction Status Date / Time IV Dye Allergy Rash Uncoded 01/20/17 10:54 Home Meds: Home Meds Albuterol [Ventolin HFA] 2 puff INH Q4H PRN 03/18/15 [History] Meloxicam [Mobic] 15 mg PO DAILY 12/30/16 [History] Venlafaxine [Effexor XR] 150 mg PO DAILY 12/30/16 [History] Acetaminophen/oxyCODONE [Percocet 325-5 MG] 2 tab PO Q4H PRN #30 tablet [Rx] Docusate Sodium [Colace] 100 mg PO BID cap 12/31/16 [Rx] Simethicone 80 mg PO Q4H PRN 01/20/17 [History] predniSONE [Prednisone] 40 mg PO DAILY #6 tablet 01/20/17 [Rx] Past Medical History - Past Health History Medical/Surgical History: Denies Medical/Surgical History Respiratory History: Reports: Asthma Other Respiratory History: Moderate snoring [employer]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 about two years ago Psychiatric History: Reports: Depression Other Dermatologic History: eczema on both medial calves - Past Surgical History Respiratory Surgical History: Reports: None Female Surgical History: Reports: Breast biopsy, Tubal ligation Musculoskeletal Surgical History: Reports: Shoulder surgery Social & Family History - Family History Family Medical History: Noncontributory - Tobacco Use Smoking Status *Q: Current Every Day Smoker Years of Tobacco use: 20 Packs/Tins Daily: 0.5 Used Tobacco, but Quit: No Second Hand Smoke Exposure: Yes - Alcohol Use Days Per Week of Alcohol Use: 0 Number of Drinks Per Day: 0 Total Drinks Per Week: 0 - Recreational Drug Use Recreational Drug Use: No Drug Use in Last 12 Months: No ED ROS ALLERGIC REACTION - Review of Systems Review Of Systems: See Below Constitutional: Reports: no symptoms. Denies: fever HEENT: Reports: Other (sensation of throat swelling) Respiratory: Reports: No Symptoms. Denies: Shortness of Breath, Wheezing, Cough Cardiovascular: Reports: No symptoms. Denies: Chest pain, Lightheadedness GI/Abdominal: Reports: No symptoms. Denies: Nausea, Vomiting Skin: Reports: pruritis ED EXAM GENERAL NO PERIP PULSE - Physical Exam Exam: See Below Exam Limited By: No limitations General Appearance: alert, WD/WN, no apparent distress Throat/Mouth: Other (no oropharyngeal swelling or erythema) Neck: normal inspection, supple, non-tender, full range of motion Respiratory/Chest: no respiratory distress, lungs clear, no accessory muscle use , decreased breath sounds. No: wheezing, stridor Cardiovascular: normal peripheral pulses, regular rate, rhythm, no murmur Skin Exam: Warm, Dry, Intact, Other (chest and left AC iv site are red, no notable rash or hives appreciated. Patient is actively itching her chest during exam.) Course - Vital Signs Last Recorded V/S: Last Vital Signs Temp 97.0 F 01/20/17 10:54 Pulse 74 01/20/17 10:54 Resp 18 01/20/17 10:54 BP 152/94 H 01/20/17 10:54 Pulse Ox 99 01/20/17 10:54 - Orders/Labs/Meds Meds: Medications Discontinued Medications Generic Name Dose Route Start Last Admin Trade Name Freq PRN Reason Stop Dose Admin Diphenhydramine HCl 50 mg 01/20/17 11:03 01/20/17 11:38 Benadryl IVPUSH 01/20/17 11:04 Not Given ONETIME ONE Diphenhydramine HCl 25 mg 01/20/17 11:14 01/20/17 11:35 Benadryl IVPUSH 01/20/17 11:15 25 mg ONETIME ONE Administration Famotidine 20 mg 01/20/17 11:03 01/20/17 11:28 Pepcid IVPUSH 01/20/17 11:04 20 mg ONETIME ONE Administration Methylprednisolone Sodium Succinate 125 mg 01/20/17 11:01 01/20/17 11:38 Solu-Medrol IVPUSH 01/20/17 11:02 Not Given ONETIME ONE Methylprednisolone Sodium Succinate 62.5 mg 01/20/17 11:16 01/20/17 11:32 Solu-Medrol IVPUSH 01/20/17 11:17 62.5 mg ONETIME ONE Administration - Re-Assessments/Exams Free Text/Narrative Re-Assessment/Exam: Initial orders were for Benadryl 50mg IV and Solu-medrol 125mg IV. However, the patient received prednisone and benadryl at [facility] so ED doses were decreased. Pepcid IV also ordered. Exam and vitals are normal, epinephrine is not indicated at this time as patient is not having a full anaphylactic reaction. Will monitor for worsening symptoms. 1230 Patient is doing well. Itching has improved. Her throat feels better. No shortness of breath. Will discharge home with prescription for prednisone. Educated on return precautions. Discharge instructions as documented. Departure - Departure Time of Disposition: 12:23 Disposition: Home, Self-Care 01 Condition: good Clinical Impression: Allergic to IV contrast Allergic reaction to contrast dye Qualifiers: Encounter type: initial encounter Qualified Code(s): T50.8X5A - Adverse effect of diagnostic agents, initial encounter Prescriptions: predniSONE [Prednisone] 40 mg PO DAILY #6 tablet Referrals: PCP,None [Primary Care Provider] - Forms: ED Department Discharge Additional Instructions: Prednisone 40mg daily for 3 days, start tomorrow. Hold Meloxicam while on Prednisone Benadryl 25-50mg every 6 hours as needed for itching Pepcid 20mg daily for 3 days, start tomorrow morning Return to ER if your symptoms worsen, you develop difficultly breathing, or have any additional concerns. Follow-up with Melody Navarro as directed for the results of your CT scan.
[2017-01-20 12:47] VITALS: BP 113/81
== END 2017-01-20 12:44 | disposition home or self-care (01) ==
LOC: JD.ED 10:51
DX: L29.9 Pruritus, unspecified (principal); T50.8X5A Adverse effect of diagnostic agents, initial encounter; J45.909 Unspecified asthma, uncomplicated; F32.9 Major depressive disorder, single episode, unspecified; F17.210 Nicotine dependence, cigarettes, uncomplicated; Z98.890 Other specified postprocedural states; Z79.899 Other long term (current) drug therapy; Z91.041 Radiographic dye allergy status
CPT/HCPCS: 96374; 96375; 99283; J1200; J2930; 99284

== ENCOUNTER 2017-06-10 09:18 | Emergency (ER) | payer SELFPAY ==
[2017-06-10 09:31] VITALS: BP 135/93
[2017-06-10] MEDS ORDERED: predniSONE 20 MG Tab PO ONE (10:29)
[2017-06-10] MEDS ORDERED: Albuterol/Ipratropium 3.0-0.5 MG/3 ML Neb Soln NEB ONE (10:29)
--- NOTE | 2017-06-10 10:29 | EDM.PDOC ---
ED HPI GENERAL MEDICAL PROBLEM - General Chief Complaint: Skin Complaint Stated Complaint: COLD SX AND SORES ON HANDS Time Seen by Provider: 06/10/17 10:19 - History of Present Illness INITIAL COMMENTS - FREE TEXT/NARRATIVE: 36-year-old female presents emergency room with worsening hand rash and a worsening cough. The patient has been having recurrent eczema in her hands she was seen in the clinic for this about a month ago and was started on triamcinolone and this did clear up however the rash has come back the patient was started on oral prednisone for her asthma a couple weeks ago and just finished a taper of this her cough continues to worsen. She has quite a bit of sinus pressure and congestion especially on the right side. This is been going on for a couple of weeks. The patient is coughing up some yellow sputum. Patient denies she's had a hysterectomy. Bilateral Hand Pain Score (Numeric/FACES): 6 - Related Data Allergies Allergy/AdvReac Type Severity Reaction Status Date / Time IV Dye Allergy Rash Uncoded 06/10/17 09:26 Home Meds: Home Meds Albuterol [Ventolin HFA] 2 puff INH Q4H PRN 03/18/15 [History] Venlafaxine [Effexor XR] 150 mg PO DAILY 12/30/16 [History] Prednisone [IJD: predniSONE] 20 mg PO WITHBREAKFAST #20 tab 06/10/17 [Rx] Triamcinolone Acetonide [Triamcinolone Acetonide 0.5%] 30 gm TOP BID #1 tube [Rx] predniSONE [Prednisone] 20 mg PO Q24H #20 tablet 06/10/17 [Rx] Past Medical History - Past Health History Medical/Surgical History: Denies Medical/Surgical History Respiratory History: Reports: Asthma, Other (See Below) Other Respiratory History: Moderate snoring [employer] History: Reports: Dysfunctional Uterine Bleeding Other OB/BYN History: cyst to left breast. 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 about two years ago Neurological History: Reports: Concussion, Migraines Psychiatric History: Reports: Depression Dermatologic History: Reports: Eczema Other Dermatologic History: eczema on both medial calves - Past Surgical History Respiratory Surgical History: Reports: None Female Surgical History: Reports: Breast Biopsy, Tubal Ligation Musculoskeletal Surgical History: Reports: Shoulder Surgery Social & Family History - Family History Family Medical History: Noncontributory - Tobacco Use Smoking Status *Q: Current Every Day Smoker Years of Tobacco use: 20 Packs/Tins Daily: 0.7 Used Tobacco, but Quit: No Second Hand Smoke Exposure: Yes - Caffeine Use Caffeine Use: Reports: Coffee, Energy Drinks, Soda - Alcohol Use Days Per Week of Alcohol Use: 0 Number of Drinks Per Day: 0 Total Drinks Per Week: 0 - Recreational Drug Use Recreational Drug Use: No Drug Use in Last 12 Months: No ED ROS GENERAL - Review of Systems Review Of Systems: See Below Constitutional: Reports: No Symptoms HEENT: Reports: Rhinitis, Sinus Problem. Denies: Ear Pain Respiratory: Reports: Cough, Sputum Cardiovascular: Reports: No Symptoms GI/Abdominal: Reports: No Symptoms ED EXAM, SKIN/RASH Exam: See Below Exam Limited By: No Limitations General Appearance: Alert, No Apparent Distress Eye Exam: Bilateral Eye: Normal Inspection Ears: Normal External Exam, Normal Canal, Hearing Grossly Normal, Normal TMs Nose: Nasal Drainage, Clear Rhinorrhea, Other (He has marked right maxillary sinus tenderness with percussion to a lesser degree) Throat/Mouth: Normal Inspection, Normal Lips, Normal Teeth, Normal Gums, Normal Oropharynx, Normal Voice, No Airway Compromise, Other (Sinus drainage noted) Head: Atraumatic, Normocephalic Neck: Normal Inspection, Supple, Non-Tender, Full Range of Motion. No: Lymphadenopathy (L), Lymphadenopathy (R) Respiratory/Chest: No Respiratory Distress, Other (Decreased breath sounds expiratory wheezes noted) Cardiovascular: Regular Rate, Rhythm, No Edema, No Murmur Skin: Other (He has a significant rash on her lower legs worse on her hands mostly the palmar surfaces of her hands patient has a history of recurrent eczema and this is acting like this. I cannot exclude scabies at this point however there is no burrows noted in this looks very much like eczema however she's been treated with triamcinolone and other topicals since then.) Course - Vital Signs Last Recorded V/S: Last Vital Signs Temp 36.3 C 06/10/17 09:27 Pulse 95 06/10/17 09:27 Resp 12 06/10/17 09:27 BP 135/93 H 06/10/17 09:27 Pulse Ox 95 06/10/17 10:30 - Orders/Labs/Meds Orders: Active Orders 24 hr Category Date Time Status RT Aerosol Therapy [RC] ASDIRECTED Care 06/10/17 10:30 Active Chest 2V [CR] Stat Exams 06/10/17 10:30 Taken Meds: Medications Discontinued Medications Generic Name Dose Route Start Last Admin Trade Name Armando PRN Reason Stop Dose Admin Albuterol/Ipratropium 3 ml 06/10/17 10:29 06/10/17 10:41 Duoneb 3.0-0.5 Mg/3 Ml NEB 06/10/17 10:30 3 ml ONETIME ONE Administration Prednisone 80 mg 06/10/17 10:29 06/10/17 10:37 Prednisone PO 06/10/17 10:30 80 mg ONETIME ONE Administration - Re-Assessments/Exams Free Text/Narrative Re-Assessment/Exam: 06/10/17 11:43 Chest x-ray shows no acute changes. The patient is doing much better after nebulizer treatment. This point patient will be discharged home on an oral prednisone taper will start her on some triamcinolone for her rash she needs close clinical follow-up if this rash continues to be a problem a trial for scabies treatment would be reasonable however I think this is not likely at this point so we'll not start at this point. The patient is advised to use her albuterol at home on a more frequent basis. She'll use Eucerin cream on her hands every few hours and after washing her hands and will be started on triamcinolone. Departure - Departure Time of Disposition: 11:52 Disposition: Home, Self-Care 01 Clinical Impression: Eczema of both hands, Asthma exacerbation, Acute bronchitis - Discharge Information Prescriptions: Prednisone [IJD: predniSONE] 20 mg PO WITHBREAKFAST #20 tab predniSONE [Prednisone] 20 mg PO Q24H #20 tablet Triamcinolone Acetonide [Triamcinolone Acetonide 0.5%] 30 gm TOP BID #1 tube Referrals: PCP,None [Primary Care Provider] - Ama Browning PA-C [Physician Surveillance System Monitor] - Forms: ED Department Discharge Additional Instructions: Return to the emergency room with any questions or problems or worsening symptoms. Follow-up in the clinic on Tuesday or Tuesday for recheck call today for an appointment. Start Eucerin cream on her hands and legs over the rash 4-6 times a day and after washing. You been started on triamcinolone cream apply this twice daily. I believe there is one refill on the prescription. Use this for 2 weeks For your asthma use your nebulizers every 4-6 hours. In the clinic discussed been started on a topical steroid to help with long-term asthma control. - My Orders Last 24 Hours: My Active Orders 06/10/17 10:30 RT Aerosol Therapy [RC] ASDIRECTED Chest 2V [CR] Stat - Assessment/Plan Last 24 Hours: My Active Orders 06/10/17 10:30 RT Aerosol Therapy [RC] ASDIRECTED Chest 2V [CR] Stat
--- NOTE | 2017-06-10 11:45 | CR ---
Chest: Two views of the chest were obtained. Comparison: No prior chest x-ray, prior chest CT dated 06/04/13 is available. Heart size and mediastinum are within normal limits. Lungs are clear. Bony structures are within normal limits. Impression: 1. Nothing acute is identified on two-view chest x-ray. Diagnostic code #1
== END 2017-06-10 12:15 | disposition home or self-care (01) ==
LOC: JD.ED 09:18 → SUPCPDRO 09:18 → JD.ED 12:15
DX: J45.901 Unspecified asthma with (acute) exacerbation (principal); L30.9 Dermatitis, unspecified; F32.9 Major depressive disorder, single episode, unspecified; Z98.51 Tubal ligation status; Z98.890 Other specified postprocedural states; F17.210 Nicotine dependence, cigarettes, uncomplicated; Z90.710 Acquired absence of both cervix and uterus; Z91.041 Radiographic dye allergy status; Z79.899 Other long term (current) drug therapy
CPT/HCPCS: 71020; 94664; 99284; A9270; 99283

== ENCOUNTER 2017-09-06 20:18 | Emergency (ER) | payer MEDICAID, OTHER ==
[2017-09-06 20:26] VITALS: BP 170/105
--- NOTE | 2017-09-06 20:47 | EDM.PDOC ---
ED HPI GENERAL MEDICAL PROBLEM - General Chief Complaint: Lower Extremity Injury/Pain Stated Complaint: LEFT LEG PAIN Time Seen by Provider: 09/06/17 20:37 Source of Information: Reports: Patient History Limitations: Reports: No Limitations - History of Present Illness INITIAL COMMENTS - FREE TEXT/NARRATIVE: Patient is a 36 y/o female who presents to the E.D. complaining of left knee pain. States approximately 2 wks ago tripped on a child gate falling forward landing on the affected knee. Since then has been experiencing increased swelling, painful ROM, limited ROM, with intermittent locking of the knee. She has been ambulating on the affected knee with a limp present. No prior history of injury to the affected knee. Has been taking ibuprofen and ice with minimal relief. 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 about two years ago Neurological History: Reports: Concussion, Migraines Psychiatric History: Reports: Depression Dermatologic History: Reports: Eczema Other Dermatologic History: eczema on both medial calves - Past Surgical History Respiratory Surgical History: Reports: None Female Surgical History: Reports: Breast Biopsy, Tubal Ligation Musculoskeletal Surgical History: Reports: Shoulder Surgery Social & Family History - Family History Family Medical History: Noncontributory - Tobacco Use Smoking Status *Q: Current Every Day Smoker Years of Tobacco use: 20 Packs/Tins Daily: 0.5 Used Tobacco, but Quit: No Second Hand Smoke Exposure: Yes - Caffeine Use Caffeine Use: Reports: Coffee, Soda - Alcohol Use Days Per Week of Alcohol Use: 0 Number of Drinks Per Day: 0 Total Drinks Per Week: 0 - Recreational Drug Use Recreational Drug Use: No Drug Use in Last 12 Months: No Review of Systems - Review of Systems Review Of Systems: ROS reveals no pertinent complaints other than HPI. ED EXAM, GENERAL - Physical Exam Exam: See Below Exam Limited By: No Limitations General Appearance: Alert, WD/WN, No Apparent Distress Ears: Hearing Grossly Normal Nose: Normal Inspection Throat/Mouth: Normal Voice, No Airway Compromise Neck: Normal Inspection, Supple Respiratory/Chest: No Respiratory Distress, No Accessory Muscle Use Cardiovascular: Normal Peripheral Pulses, Regular Rate, Rhythm Peripheral Pulses: 2+: Posterior Tibial (L) Extremities: No Pedal Edema, Normal Capillary Refill, Other (Left knee: Mild swelling to person the right knee. Pain with palpation of the medial/lateral/ anterior aspect of the knee with no obvious bony antibiotics present. No ecchymosis present. Limited range of motion with flexion and extension of the knee secondary to pain. Unable to do an additional provocative testing secondary discomfort. No locking of the knee with flexion and extension. No sensory/motor deficits distally.) Neurological: Alert, CN II-XII Intact, Normal Cognition, No Motor/Sensory Deficits Psychiatric: Normal Affect, Normal Mood Skin Exam: Warm, Dry, Intact, Normal Color, No Rash Course - Vital Signs Last Recorded V/S: Last Vital Signs Temp 97.5 F 09/06/17 20:22 Pulse 90 09/06/17 20:22 Resp 18 09/06/17 20:22 BP 170/105 H 09/06/17 20:22 Pulse Ox 98 09/06/17 20:22 - Orders/Labs/Meds Orders: Active Orders 24 hr Category Date Time Status Knee 1V or 2V Lt [CR] Stat Exams 09/06/17 21:26 Taken Knee Min 4V Lt [CR] Stat Exams 09/06/17 20:41 Taken - Re-Assessments/Exams Free Text/Narrative Re-Assessment/Exam: Will obtain x-ray of the left knee. 09/06/17 21:27 4 view x-ray of the knee did not reveal any acute bony abnormalities. No sunrise view. Ordered one view of the knee to evaluate for a patellar abnormalities. Per nursing staff the patient had told the triage nurse that she injured her knee several months ago and was seen by a physician with a order for MRI to be conducted. In addition she was prescribed a knee brace which she has not obtained. Patient does not tell me this on initial examination. Awaiting for the sunrise view to be obtained. [place] view has been ordered. She has crutches at home. [place] view did not reveal any acute bony abnormalities. She will see her PCP to have MRI of the knee ordered again. Departure - Departure Time of Disposition: 21:50 Disposition: Home, Self-Care 01 Clinical Impression: Pain of left knee after injury - Discharge Information Instructions: Crutch Use, [id number], Knee Immobilizer, [id number] Referrals: PCP,None [Primary Care Provider] - Forms: ED Department Discharge Additional Instructions: You're to be nonweightbearing utilizing crutches and knee immobilizer to ambulate. Elevate the affected knee as needed to reduce any swelling and pain. Apply ice to affected area 3 times a day 20minutes in duration, do not place ice directly on the skin. Utilize ibuprofen and Tylenol in alternating fashion. Call and make an appt with Dr. Daigle Orthopedic Surgeon to be evaluated in the next 10 to 14 days. Return to the E.D. for any new or worsening symptoms. - My Orders Last 24 Hours: My Active Orders 09/06/17 20:41 Knee Min 4V Lt [CR] Stat 09/06/17 21:26 Knee 1V or 2V Lt [CR] Stat - Assessment/Plan Last 24 Hours: My Active Orders 09/06/17 20:41 Knee Min 4V Lt [CR] Stat 09/06/17 21:26 Knee 1V or 2V Lt [CR] Stat
--- NOTE | 2017-09-07 08:49 | CR ---
Left knee: Four views of the left knee were obtained. Comparison: No previous knee exam. Medial and lateral joint spaces are preserved. Small joint effusion is present. No acute fracture or other bony abnormality is is seen. Impression: 1. Small joint effusion. 2. No bony abnormality is is identified on left knee exam. Diagnostic code #2
--- NOTE | 2017-09-07 08:49 | CR ---
Left knee: [place] patellar view of the left knee was obtained. Comparison: Prior knee exam performed earlier on the same day (8:41 PM). Patellofemoral joint appears within normal limits. Impression: 1. Unremarkable sunrise patellar view. Diagnostic code #1
== END 2017-09-06 22:17 | disposition home or self-care (01) ==
LOC: JD.ED 20:18
DX: S89.92XA Unspecified injury of left lower leg, initial encounter (principal); F17.210 Nicotine dependence, cigarettes, uncomplicated; J45.909 Unspecified asthma, uncomplicated; F32.9 Major depressive disorder, single episode, unspecified; Z79.899 Other long term (current) drug therapy; Z91.041 Radiographic dye allergy status; W01.0XXA Fall on same level from slipping, tripping and stumbling without subsequent striking against object, initial encounter
CPT/HCPCS: 73560-26-LT; 73560-LT; 73564-26-LT; 73564-LT; 99283

== ENCOUNTER 2018-04-02 18:12 | Emergency (ER) | payer MEDICAID ==
[2018-04-02] MEDS ORDERED: HYDROmorphone 0.5 MG/0.5 ML SYRINGE IM ONE (20:09)
[2018-04-02] MEDS ORDERED: Promethazine 25 MG/ML SDV IM ONE (20:10)
[2018-04-02] MEDS ORDERED: Sodium Chloride 0.9% 10 ML Syringe FLUSH PRN (20:21)
[2018-04-02] MEDS ORDERED: HYDROmorphone 0.5 MG/0.5 ML SYRINGE IVPUSH ONE (20:23)
[2018-04-02] MEDS ORDERED: Promethazine 25 MG in Sodium Chloride 0.9% 50 ML IV ONE (20:23)
[2018-04-02] MEDS ORDERED: Sodium Chloride 0.9% 1,000 ML IV SCH (20:30)
--- NOTE | 2018-04-02 20:57 | EDM.PDOC ---
ED HPI GENERAL MEDICAL PROBLEM - General Chief Complaint: Gastrointestinal Problem Stated Complaint: VOMITING X 4 DAYS Time Seen by Provider: 04/02/18 20:00 Source of Information: Reports: Patient History Limitations: Reports: No Limitations - History of Present Illness INITIAL COMMENTS - FREE TEXT/NARRATIVE: This is a 37-year-old female that comes in today with complaints of vomiting, diarrhea and migraine headache for 4 days. She states she feels the vomiting started before the headache and then the migraine came after. She does have a history of migraines, but hasn't had an episode like this in quite some time. She states sleeping has made it better and therefore has been sleeping for many days and no [id number] medications have helped alleviate the pain. She stated she also tried Ibuprofen 800 with no relief. She does complain of having fever, chills, mild stomach pain, lightheadedness, generalized weakness, cough, and 5/10 headache pain with aura and light sensitivity. She describes her condition as feeling "flu-like". She denies any sick contacts, recent camping or hiking, travel outside the country, trauma, recent change in diet. 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 She does have a history of asthma and smoking and does complain of a cough but it is nonproductive. No other symptoms at this time. 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 about two years ago Neurological History: Reports: Concussion, Migraines Psychiatric History: Reports: Anxiety, Depression Dermatologic History: Reports: Eczema Other Dermatologic History: eczema on both medial calves - Past Surgical History Respiratory Surgical History: Reports: None Female Surgical History: Reports: Breast Biopsy, Tubal Ligation Musculoskeletal Surgical History: Reports: Shoulder Surgery Social & Family History - Family History Family Medical History: Noncontributory - Tobacco Use Smoking Status *Q: Current Every Day Smoker Years of Tobacco use: 20 Packs/Tins Daily: 0.5 - Caffeine Use Caffeine Use: Reports: Coffee - Recreational Drug Use Recreational Drug Use: No ED ROS GENERAL - Review of Systems Review Of Systems: See Below Constitutional: Reports: Fever, Chills, Weakness, Fatigue HEENT: Reports: Other (sensitivity to light) Respiratory: Reports: Cough. Denies: Shortness of Breath, Wheezing, Sputum Cardiovascular: Reports: No Symptoms GI/Abdominal: Reports: Abdominal Pain (mild, feels it's due to the vomiting), Diarrhea, Nausea, Vomiting. Denies: Bloody Stool, Hematemesis, Hematochezia : Reports: No Symptoms. Denies: Dysuria, Flank Pain, Frequency, Hematuria Neurological: Reports: Headache (02/23) Psychiatric: Reports: Agitation ED EXAM, GI/ABD - Physical Exam Exam: See Below Exam Limited By: No Limitations General Appearance: Alert, WD/WN, Mild Distress Eyes: Bilateral: Normal Appearance, EOMI Ears: Hearing Grossly Normal Head: Atraumatic, Normocephalic Respiratory/Chest: No Respiratory Distress, Lungs Clear, Normal Breath Sounds, No Accessory Muscle Use, Chest Non-Tender Cardiovascular: Normal Peripheral Pulses, Regular Rate, Rhythm, No Edema, No Gallop, No JVD, No Murmur, No Rub GI/Abdominal Exam: Soft, Non-Tender, No Organomegaly, No Distention, No Abnormal Bruit, No Mass, Pelvis Stable, Abnormal Bowel Sounds (hyperactive bowel sounds) Neurological: Alert, Oriented, CN II-XII Intact, Normal Cognition, Normal Gait, Normal Reflexes, No Motor/Sensory Deficits Psychiatric: Normal Affect, Normal Mood Course - Vital Signs Last Recorded V/S: Last Vital Signs Temp 97.9 F 04/02/18 18:18 Pulse 110 H 04/02/18 18:18 Resp 18 04/02/18 18:18 BP 135/88 04/02/18 18:18 Pulse Ox 96 04/02/18 18:18 - Orders/Labs/Meds Orders: Active Orders 24 hr Category Date Time Status Peripheral IV Care [RC] . DIRECTED Care 04/02/18 20:22 Active Sodium Chloride 0.9% [Normal Saline] 1,000 ml Med 04/02/18 20:30 Active IV ASDIRECTED Sodium Chloride 0.9% [Saline Flush] Med 04/02/18 20:21 Active 10 ml FLUSH ASDIRECTED PRN Peripheral IV Insertion Adult [OM.PC] Routine Oth 04/02/18 20:21 Ordered Medication Orders Sodium Chloride (Normal Saline) 1,000 mls @ 999 mls/hr IV ASDIRECTED WILD Last Admin: 04/02/18 20:33 Dose: 999 mls/hr Sodium Chloride (Saline Flush) 10 ml FLUSH ASDIRECTED PRN PRN Reason: Keep Vein Open Last Admin: 04/02/18 20:34 Dose: 10 ml Labs: Laboratory Tests 04/02/18 04/02/18 Range/Units 18:40 18:40 WBC 8.89 (3.98-10.04) K/mm3 RBC 4.74 (3.98-5.22) M/mm3 Hgb 14.5 (11.2-15.7) gm/L Hct 43.4 (34.1-44.9) % MCV 91.6 (79.4-94.8) fl MCH 30.6 (25.6-32.2) pg MCHC 33.4 (32.2-35.5) g/dl RDW Std Deviation 46.7 H (36.4-46.3) fL Plt Count 199 (182-369) K/mm3 MPV 9.6 (9.4-12.3) fl Neut % (Auto) 41.9 (34.0-71.1) % Lymph % (Auto) 46.8 (19.3-51.7) % [place] % (Auto) 7.3 (4.7-12.5) % Eos % (Auto) 1.8 (0.7-5.8) Baso % (Auto) 1.6 H (0.1-1.2) % Neut # (Auto) 3.73 (1.56-6.13) K/mm3 Lymph # (Auto) 4.16 H (1.18-3.74) K/mm3 [place] # (Auto) 0.65 H (0.24-0.36) K/mm3 Eos # (Auto) 0.16 (0.04-0.36) K/mm3 Baso # (Auto) 0.14 H (0.01-0.08) K/mm3 Manual Slide Review Abnormal smear Sodium 136 (136-145) mEq/L Potassium 4.1 (3.5-5.1) mEq/L Chloride 101 (98-107) mEq/L Carbon Dioxide 27 (21-32) mEq/L Anion Gap 12.1 (5-15) BUN 11 (7-18) mg/dL Creatinine 0.9 (0.55-1.02) mg/dL Est Cr Clr Drug Dosing 63.33 mL/min Estimated GFR (MDRD) > 60 (>60) mL/min BUN/Creatinine Ratio 12.2 L (14-18) Glucose 118 H (74-106) mg/dL Calcium 8.5 (8.5-10.1) mg/dL Total Bilirubin 0.3 (0.2-1.0) mg/dL AST 164 H (15-37) U/L ALT 140 H (14-59) U/L Alkaline Phosphatase 109 (46-116) U/L Total Protein 6.7 (6.4-8.2) g/dl Albumin 2.9 L (3.4-5.0) g/dl Globulin 3.8 gm/dL Albumin/Globulin Ratio 0.8 L (1-2) Meds: Medications Generic Name Dose Route Start Last Admin Trade Name Freq PRN Reason Stop Dose Admin Sodium Chloride 1,000 mls @ 999 mls/hr 04/02/18 20:30 04/02/18 20:33 Normal Saline IV 999 mls/hr ASDIRECTED WILD Administration Sodium Chloride 10 ml 04/02/18 20:21 04/02/18 20:34 Saline Flush FLUSH 10 ml ASDIRECTED PRN Administration Keep Vein Open Discontinued Medications Generic Name Dose Route Start Last Admin Trade Name Freq PRN Reason Stop Dose Admin Hydromorphone HCl 0.5 mg 04/02/18 20:09 04/02/18 20:34 Dilaudid IM 04/02/18 20:10 Not Given ONETIME ONE Hydromorphone HCl 0.5 mg 04/02/18 20:23 04/02/18 20:24 Dilaudid IVPUSH 04/02/18 20:24 0.5 mg ONETIME ONE Administration Promethazine HCl 25 mg/ Sodium 51 mls @ 100 mls/hr 04/02/18 20:23 04/02/18 20 :34 Chloride IV 04/02/18 20:53 100 mls/hr ONETIME ONE Administration Promethazine HCl 25 mg 04/02/18 20:10 04/02/18 20:34 Phenergan IM 04/02/18 20:11 Not Given ONETIME ONE - Re-Assessments/Exams Free Text/Narrative Re-Assessment/Exam: IV Fluids given as the patient has been vomiting all day. Dilaudid 0.5mg and Phenergan given for migraine and nausea. Ordered CBC, CMP. 04/02/18 21:50 Rechecked on Janet, she is still having 5/10 headache but her nausea has improved. I discussed the results of her lab work, which was unremarkable except for severely elevated liver enzymes. She admitted to heavy drinking in the past. No excessive Tylenol use at home. Unsure of hepatitis exposure but no symptoms. I explained that she should follow up with her PCP to investigate this further. She stated she understood and agreed. Will try sumatriptan for relief of migraine. 04/02/18 23:02 Dr. Jame Henriquez in to see patient. Per Dr. Henriquez, pt is still not having relief of the migraine but is feeling well enough that she is ready to go home. She was advised to go home and sleep and if the pain is no better in the morning to follow up with the walk-in clinic. Pt understands and agrees with this plan. Departure - Departure Time of Disposition: 23:00 Disposition: Home, Self-Care 01 Condition: Fair Clinical Impression: Migraine aura, persistent, intractable Nausea & vomiting Qualifiers: Vomiting type: unspecified Vomiting Intractability: unspecified Qualified Code( s): R11.2 - Nausea with vomiting, unspecified - Discharge Information Prescriptions: Promethazine [Phenergan] 12.5 mg PO Q6H PRN #4 tab PRN Reason: Nausea Instructions: Recurrent Migraine Headache, [id number], Nausea and Vomiting, Adult, [id number] Referrals: PCP,None [Primary Care Provider] - Forms: ED Department Discharge Additional Instructions: You were seen in the ED today for nausea/vomiting with migraine. You had labs done which did not show evidence of infection. You were given anti-nausea medication and pain medication here in the ED. Take Phenergan every 6 hours as needed for nausea. It is recommended that you rest and avoid light if your eyes remain sensitive to it. It is recommended that you stay hydrated with water, gatorade, or pedialyte. You may also try a liquid diet or the BRAT diet (Bananas, Rice, Applesauce, [place]) as your appetite returns. If you symptoms do not improve by the morning, consider going to the Walk-In Clinic (phone number is [phone]). If your symptoms worsen, return to the ED. Follow up with your PCP regarding your elevated liver enzymes that were found while doing your lab work here. - My Orders Last 24 Hours: My Active Orders 04/02/18 20:21 Sodium Chloride 0.9% [Saline Flush] 10 ml FLUSH ASDIRECTED PRN Peripheral IV Insertion Adult [OM.PC] Routine 04/02/18 20:22 Peripheral IV Care [RC] . DIRECTED 04/02/18 20:30 Sodium Chloride 0.9% [Normal Saline] 1,000 ml IV ASDIRECTED - Assessment/Plan Last 24 Hours: My Active Orders 04/02/18 20:21 Sodium Chloride 0.9% [Saline Flush] 10 ml FLUSH ASDIRECTED PRN Peripheral IV Insertion Adult [OM.PC] Routine 04/02/18 20:22 Peripheral IV Care [RC] . DIRECTED 04/02/18 20:30 Sodium Chloride 0.9% [Normal Saline] 1,000 ml IV ASDIRECTED
[2018-04-02] MEDS ORDERED: SUMAtriptan 6 MG/0.5 ML SDV SUBCUT ONE (21:56)
[2018-04-02 23:38] VITALS: BP 117/80
== END 2018-04-02 23:33 | disposition home or self-care (01) ==
LOC: JD.ED 18:12
DX: G43.519 Persistent migraine aura without cerebral infarction, intractable, without status migrainosus (principal); R11.2 Nausea with vomiting, unspecified; F17.210 Nicotine dependence, cigarettes, uncomplicated; Z91.041 Radiographic dye allergy status; Z79.899 Other long term (current) drug therapy
CPT/HCPCS: 36415; 80053; 85025; 96361; 96365; 96372; 96375; 99284; J1170; J2550; J3030; J7040; J7050

== ENCOUNTER 2018-11-06 19:55 | Emergency (ER) | payer MEDICAID ==
[2018-11-06 20:03] VITALS: BP 153/92
[2018-11-06] MEDS ORDERED: Acetaminophen/HYDROcodone 325-5 MG Tab PO ONE (20:39)
[2018-11-06] MEDS ORDERED: predniSONE 20 MG Tab PO ONE (20:39)
--- NOTE | 2018-11-06 20:50 | EDM.PDOC ---
ED HPI GENERAL MEDICAL PROBLEM - General Chief Complaint: Back Pain or Injury Stated Complaint: BACK PAIN Time Seen by Provider: 11/06/18 20:18 Source of Information: Reports: Patient, RN Notes Reviewed - History of Present Illness INITIAL COMMENTS - FREE TEXT/NARRATIVE: 37-year-old female comes in with low back pain. She states she has had this for about 8-10 days. The pain is primarily low back with occasional radiation down the left leg. She was started on a muscle relaxant recently but in spite of that the pain is been getting worse the last few days. The pain is worse with certain types of motion. She has been taking Aleve once or twice a day but not getting good relief from that. There's been no fall or injury that she is aware of. No voiding symptomatology. No nausea vomiting fever or chills. Back Pain Score (Numeric/FACES): 10 - Related Data Allergies Allergy/AdvReac Type Severity Reaction Status Date / Time Iodinated Contrast- Oral and Allergy Rash/ Verified 11/06/18 20:03 IV Dye ITCHING EVEN WITH PREMEDICATION IV Dye Allergy Rash Uncoded 06/10/17 09:26 Home Meds: Home Meds Albuterol [Ventolin HFA] 2 puff INH Q4H PRN 03/18/15 [History] Venlafaxine [Effexor XR] 225 mg PO DAILY 12/30/16 [History] Promethazine [Phenergan] 12.5 mg PO Q6H PRN #4 tab 04/02/18 [Rx] Past Medical History - Past Health History Medical/Surgical History: Denies Medical/Surgical History HEENT History: Reports: Impaired Vision Respiratory History: Reports: Asthma, Other (See Below) Other Respiratory History: 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 about two years ago Neurological History: Reports: Concussion, Migraines Psychiatric History: Reports: Anxiety, Depression Dermatologic History: Reports: Eczema Other Dermatologic History: eczema on both medial calves - Past Surgical History Respiratory Surgical History: Reports: None Female Surgical History: Reports: Breast Biopsy, Tubal Ligation Musculoskeletal Surgical History: Reports: Shoulder Surgery Social & Family History - Family History Family Medical History: Noncontributory - Tobacco Use Smoking Status *Q: Current Every Day Smoker Years of Tobacco use: 20 Packs/Tins Daily: 0.1 - Caffeine Use Caffeine Use: Reports: Coffee - Recreational Drug Use Recreational Drug Use: No ED ROS GENERAL - Review of Systems Review Of Systems: See Below Constitutional: Denies: Fever, Chills, Diaphoresis HEENT: Reports: No Symptoms Respiratory: Denies: Shortness of Breath Cardiovascular: Denies: Chest Pain GI/Abdominal: Denies: Abdominal Pain, Nausea, Vomiting Skin: Reports: No Symptoms Neurological: Reports: Numbness (Occasional numbness into left leg, some numbness of her left upper extremity today, now gone). Denies: Trouble Speaking , Difficulty Walking, Weakness ED EXAM,LOWER BACK PAIN/INJURY - Physical Exam Exam: See Below General Appearance: Alert, Moderate Distress Eye Exam: Bilateral Eye: PERRL Throat/Mouth: Normal Inspection, Normal Oropharynx Head: Atraumatic Neck: Supple, Full Range of Motion Respiratory/Chest: No Respiratory Distress, Lungs Clear, Normal Breath Sounds Cardiovascular: Regular Rate, Rhythm Back Exam: Paraspinal Tenderness (Bilateral low back, no visible spasm) Extremities: Normal Inspection, Normal Range of Motion Neurological: Alert, No Motor/Sensory Deficits Skin Exam: Warm, Dry, Normal Color Course - Vital Signs Last Recorded V/S: Last Vital Signs Temp 97.1 F 11/06/18 20:00 Pulse 93 11/06/18 20:00 Resp 16 11/06/18 20:00 BP 153/92 H 11/06/18 20:00 Pulse Ox 95 11/06/18 20:00 - Orders/Labs/Meds Meds: Medications Discontinued Medications Generic Name Dose Route Start Last Admin Trade Name Armando PRN Reason Stop Dose Admin Hydrocodone Bitart/Acetaminophen 1 tab 11/06/18 20:39 11/06/18 20:45 [place] 325-5 Mg PO 11/06/18 20:40 1 tab ONETIME ONE Administration Prednisone 40 mg 11/06/18 20:39 11/06/18 20:46 Prednisone PO 11/06/18 20:40 40 mg ONETIME ONE Administration Departure - Departure Time of Disposition: 20:47 Disposition: Home, Self-Care 01 Condition: Fair Clinical Impression: Low back pain Qualifiers: Chronicity: acute Back pain laterality: bilateral Sciatica presence: with sciatica Sciatica laterality: sciatica of left side Qualified Code(s): M54.42 - Lumbago with sciatica, left side - Discharge Information Instructions: Back Pain, Adult, [id number] Referrals: Elias Tee PA-C [Primary Care Provider] - Forms: ED Department Discharge Additional Instructions: Rest back, alternate ice and heat as needed, continue Aleve, take 2 tablets twice daily for pain and inflammation, continue muscle relaxant as needed, prednisone as prescribed. Tylenol up to 3 times daily in addition for mild to moderate discomfort or hydrocodone if needed for severe pain. Do not take Tylenol and hydrocodone at the same time, do not drive when taking hydrocodone, follow-up clinic Tuesday as planned
== END 2018-11-06 20:56 | disposition home or self-care (01) ==
LOC: JD.ED 19:55
DX: M54.42 Lumbago with sciatica, left side (principal); F17.210 Nicotine dependence, cigarettes, uncomplicated; J45.909 Unspecified asthma, uncomplicated; Z79.899 Other long term (current) drug therapy; Z91.030 Bee allergy status
CPT/HCPCS: 99283; A9270

== ENCOUNTER 2020-12-10 06:58 | Day surgery (SDC) | payer MEDICAID ==
--- NOTE | 2020-12-08 13:59 | PCM.PREANE ---
Preanesthetic Assessment - Procedure Proposed Procedure: EGD and Colonoscopy with possible hemorrhoid banding - Anesthesia/Transfusion/Family Hx Anesthesia History: Prior Anesthesia Without Reaction Family History of Anesthesia Reaction: No Transfusion History: No Prior Transfusion(s) Intubation History: Unknown - Review of Systems General: No Symptoms Pulmonary: No Symptoms (Asthma/Smoker: 1 ppd times 20 years. ETOH:Occasionally Albuterol 4 puffs taken in preop area.) Cardiovascular: No Symptoms Gastrointestinal: No Symptoms (GERD), Abdominal Pain (4/10) Neurological: No Symptoms (Chronic left breast mastitis), Headache (chronic) Other: Reports: None, Easy Bruising, Depression - Physical Assessment NPO Status Date: 12/09/20 NPO Status Time: 22:00 Vital Signs: HR:106 Sat:94% Temp:98 B/P:146/80 Resp:18 Height: 1.55 m Weight: 91 kg ASA Class: 3 Mental Status: Alert & Oriented x3 Airway Class: Mallampati = 2 Dentition: Reports: Normal Dentition, [place](s), Caries Thyro-Mental Finger Breadths: 3 Mouth Opening Finger Breadths: 3 ROM/Head Extension: Full Lungs: Clear to Auscultation, Normal Respiratory Effort Cardiovascular: Regular Rate, Regular Rhythm, No Murmurs - Lab Values: All labs reviewed and noted and within acceptable ranges to proceed with scheduled procedure. - Allergies Allergies/Adverse Reactions: Allergies Allergy/AdvReac Type Severity Reaction Status Date / Time Iodinated Contrast Media Allergy Rash/ Verified 12/09/20 13:04 [Iodinated Contrast- Oral ITCHING and IV Dye] EVEN WITH PREMEDICATION - Anesthesia Plan Pre-Op Medication Ordered: None - Acknowledgements Anesthesia Type Planned: MAC Pt an Appropriate Candidate for the Planned Anesthesia: Yes Alternatives and Risks of Anesthesia Discussed w Pt/Guardian: Yes Pt/Guardian Understands and Agrees with Anesthesia Plan: Yes PreAnesthesia Questionnaire - Past Health History Medical/Surgical History: Denies Medical/Surgical History HEENT History: Reports: Impaired Vision Respiratory History: Reports: Asthma, Other (See Below) Other Respiratory History: Moderate snoring 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 about two years ago Neurological History: Reports: Concussion, Migraines Psychiatric History: Reports: Anxiety, Depression Dermatologic History: Reports: Eczema Other Dermatologic History: eczema on both medial calves - Past Surgical History Respiratory Surgical History: Reports: None Female Surgical History: Reports: Breast Biopsy, Tubal Ligation Musculoskeletal Surgical History: Reports: Shoulder Surgery - HOME MEDS Home Medications: Home Meds Albuterol [Ventolin HFA] 2 puff INH Q4H PRN 03/18/15 [History] Fluticasone Propion/Salmeterol [Advair 250-50 Diskus] 1 puff INH BID 12/09/20 [History] Triamcinolone Acetonide [Kenalog 0.1% Crm] 1 dose TOP BID 12/09/20 [History] Venlafaxine [Effexor XR] 150 mg PO DAILY 12/09/20 [History] Venlafaxine [Effexor] 75 mg PO DAILY 12/09/20 [History] hydrOXYzine pamoate [Vistaril] 25 mg PO QID PRN 12/09/20 [History] - CURRENT (IN HOUSE) MEDS Current Meds: Current Medications Lactated Ringer's (Ringers, Lactated) 1,000 mls @ 125 mls/hr IV ASDIRECTED WILD Stop: 12/10/20 23:00 Lidocaine/Sodium Bicarbonate (Buffered Lidocaine 1% In Ns 8.4%) 0.25 ml IDERM ONETIME PRN PRN Reason: Prior to IV Start Stop: 12/10/20 18:00 Sodium Chloride (Saline Flush) 10 ml FLUSH ASDIRECTED PRN PRN Reason: Keep Vein Open Stop: 12/10/20 18:00
[~2020-12-10 06:58] MED LIST: Lactated Ringers 1,000 ML IV SCH; Lidocaine 1% 4 ML ONE; Lidocaine 1%/Sod Bicarbonate in NS 8.4% 1 ML Syringe IDERM PRN; Propofol 200 MG/20 ML SDV ONE; Sodium Chloride 0.9% 10 ML Syringe FLUSH PRN; fentaNYL 100 MCG/2 ML SDV ONE
[2020-12-10] MEDS ORDERED: Propofol 200 MG/20 ML SDV ONE ×3 (07:43→08:30)
[2020-12-10] MEDS ORDERED: Lactated Ringers 1,000 ML ONE (08:03)
[2020-12-10] MEDS ORDERED: fentaNYL 100 MCG/2 ML SDV ONE (08:10)
--- NOTE | 2020-12-10 08:49 | PCM48HPAN ---
Post Anesthesia Note - EVALUATION WITHIN 48HRS OF ANESTHETIC Vital Signs in Normal Range: Yes Patient Participated in Evaluation: Yes Respiratory Function Stable: Yes Airway Patent: Yes Cardiovascular Function Stable: Yes Hydration Status Stable: Yes Pain Control Satisfactory: Yes Nausea and Vomiting Control Satisfactory: Yes Mental Status Recovered: Yes Vital Signs: Last Vital Signs Temp 36.7 C 12/10/20 07:20 Pulse 98 12/10/20 07:20 Resp 18 12/10/20 07:20 BP 111/74 12/10/20 07:20 Pulse Ox 94 L 12/10/20 07:20
--- NOTE | 2020-12-10 08:59 | PCM.OPNOTE ---
- General Post-Op/Procedure Note Date of Surgery/Procedure: 12/10/20 Operative Procedure(s): EGD and Colonoscopy with hemorrhoid banding Findings: 1. Gastritis 2. Abnormal gastric fundic mucosa 3. Scalloped duodenal mucosa 4. Irregular z-line 5. Ulcerated mucosa in ascending, transverse and sigmoid colon 6. Internal hemorrhoids Pre Op Diagnosis: History of hematmesis and rectal bleeding Post-Op Diagnosis: Same Anesthesia Technique: ANDREW Primary Surgeon: Marilou Gamez Anesthesia Provider: Linda Sutton Pathology: 1. Gastric antrum mucosa biopsies 2. Abnormal gastric fundic mucosa biopsies 3. Scalloped duodenal mucosa biopsies 4. Irregular z-line biopsies 5. Ulcerated mucosa in ascending, transverse and sigmoid colon biopsies Fluid Replacement, Intraop: 1,000 Output, Urine Amount: 0 EBL in mLs: 0 Complications: none apparent Condition: Good
--- NOTE | 2020-12-10 09:06 | PCM.PRNOTE ---
- Free Text/Narrative Note: Operative Report Date of Procedure: November Pre Op Diagnosis: history of hematemesis and rectal bleeding Post-Op Diagnosis: same Operative Procedures: 1. EGD with biopsy 2. Colonoscopy to the cecum with hemorrhoid banding Primary Surgeon: Marilou Gamez MD Anesthesia Provider: Linda Sutton CRNA Anesthesia Technique: MAC IV Fluid Replacement, Intraop: 1000cc crystalloid Output, Urine Amount: 0cc EBL in mLs: 0cc Findings: 1. Gastritis 2. Abnormal gastric fundic mucosa 3. Scalloped duodenal mucosa 4. Irregular z-line 5. Ulcerated mucosa in ascending, transverse and sigmoid colon 6. Internal hemorrhoids Specimens: 1. Gastric antrum mucosa biopsies 2. Abnormal gastric fundic mucosa biopsies 3. Scalloped duodenal mucosa biopsies 4. Irregular z-line biopsies 5. Ulcerated mucosa in ascending, transverse and sigmoid colon biopsies Drain/Tubes: None Indication: The patient is an 39-year-old lady who presented to the clinic for evaluation. The patient reported symptoms of hematemesis and rectal bleeding. The patient was consented for a diagnostic EGD and colonoscopy with possible hemorrhoid banding. Risks of bleeding, and perforation were discussed, and the patient agreed to the risks and wished to proceed. Description of the procedure: The patient was taken back to the endoscopy suite, and placed in the left lateral decubitus position. A bite block was placed. The patient was sedated with MAC anesthesia. The Olympus video endoscope was inserted into the oropharynx and guided under direct vision into the esophagus, stomach, and duodenum. The duodenal bulb had scalloped mucosal and was biopsied with a cold biopsy forceps. The second portion of the duodenum were unremarkable. The gastric antrum was inspected and cold biopsy forceps were used to take tissue samples for H. pylori. There was erythema in the gastric antrum and pyloric stomach consistent with gastritis. The scope was withdrawn to the stomach and retroflexed. There was no increased fluid, food or secretions in the upper gastrointestinal tract. There were white 2-3mm areas of mucosa in the fundus. This was biopsied with a cold biopsy forceps. The scope was withdrawn to the esophagus. A this point we noted an irregular Z-line which was biopsied in four quadrants using a cold biopsy forceps. The endoscope was then withdrawn. Next, anorectal examination was performed. No lesions, masses or hemorrhoids were noted externally or on palpation. She did have external anal skin tags. The scope was placed into the rectum and advanced to cecum. Upon reaching the cecum, and the patients cecum was entered. There was minimal tortuosity of the colon. The ileocecal valve was well visualized and the appendiceal orifice identified. At this point, the scope was slowly withdrawn, paying attention to the mucosa. The patient had good bowel prep. Shallow scattered ulceration was noted in the ascending colon, transverse colon and sigmoid colon. There were also petechiae in the sigmoid colon. This was biopsied with a cold biopsy forceps. In the rectum, scope was retroflexed and some hemorrhoidal tissue was noted. The scope was placed back in the lumen and excess air was aspirated. The scope was removed. The anoscope was then inserted and 3 hemorrhoid bands were placed. The patient tolerated the procedure very well. Complications: None apparent Condition: The patient was transported to PACU in stable condition. Marilou Gamez MD General Surgery
[2020-12-10 10:17] VITALS: BP 125/74; PULSE 86
== END 2020-12-10 10:32 | disposition home or self-care (01) ==
LOC: JD.SDS 06:58
PROVIDERS: ATTEND Surgery
DX: K29.50 Unspecified chronic gastritis without bleeding (principal); K20.90 Esophagitis, unspecified without bleeding; K63.3 Ulcer of intestine; K64.8 Other hemorrhoids; K22.8 Other specified diseases of esophagus; K31.89 Other diseases of stomach and duodenum; J45.909 Unspecified asthma, uncomplicated; Z79.899 Other long term (current) drug therapy; F17.210 Nicotine dependence, cigarettes, uncomplicated
CPT/HCPCS: 43239; 45380; 46221; J2704; J3010; J7120; 00813

== ENCOUNTER 2021-04-09 07:49 | Day surgery (SDC) | payer MEDICAID ==
[~2021-04-09 07:49] MED LIST changes: +Acetaminophen 325 MG Tab PO SCH; +Albuterol 0.083% 2.5 MG/3 ML Neb Soln NEB SCH; +Gabapentin 300 MG Cap PO SCH; -Lidocaine 1% 4 ML ONE; -Propofol 200 MG/20 ML SDV ONE; -fentaNYL 100 MCG/2 ML SDV ONE
[2021-04-09] MEDS ORDERED: Loratadine 10 MG Tab PO ONE (08:17)
--- NOTE | 2021-04-09 08:28 | PCM.PREANE ---
Preanesthetic Assessment - Procedure Proposed Procedure: Open Hemorrhoidectomy - Anesthesia/Transfusion/Family Hx Anesthesia History: Prior Anesthesia Without Reaction Family History of Anesthesia Reaction: No Transfusion History: No Prior Transfusion(s) Type of Transfusion Reactions: Reports: Unknown Intubation History: Unknown - Review of Systems General: Fatigue (Chronic) Pulmonary: Cough (Smoker 1/2-1 ppd for 20 years. 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 ), Other (Asthma) Cardiovascular: No Symptoms Gastrointestinal: No Symptoms (Rectal Bleeding) Neurological: Headache (Chronic) Other: Reports: None (History of misuse of narcotic), Depression, Anxiety - Physical Assessment NPO Status Date: 04/08/21 NPO Status Time: 22:30 Weight: 89.5 kg ASA Class: 3 Mental Status: Alert & Oriented x3 Airway Class: Mallampati = 2 Dentition: Reports: [place](s), Caries Thyro-Mental Finger Breadths: 2 Mouth Opening Finger Breadths: 3 ROM/Head Extension: Full Lungs: Clear to Auscultation, Normal Respiratory Effort Cardiovascular: Regular Rate, Tachycardia (Borderline 96-103) - Allergies Allergies/Adverse Reactions: Allergies Allergy/AdvReac Type Severity Reaction Status Date / Time Iodinated Contrast Media Allergy Rash/ Verified 04/08/21 12:55 [Iodinated Contrast- Oral ITCHING and IV Dye] EVEN WITH PREMEDICATION - Blood Blood Available: No - Anesthesia Plan Pre-Op Medication Ordered: Other (Albuterol Nebulizer) - Acknowledgements Anesthesia Type Planned: MAC Pt an Appropriate Candidate for the Planned Anesthesia: Yes Alternatives and Risks of Anesthesia Discussed w Pt/Guardian: Yes Pt/Guardian Understands and Agrees with Anesthesia Plan: Yes PreAnesthesia Questionnaire - Past Health History Medical/Surgical History: Denies Medical/Surgical History HEENT History: Reports: Impaired Vision, Other (See Below) Other HEENT History: wears glasses/contacts Cardiovascular History: Reports: None Respiratory History: Reports: Asthma, Other (See Below) Other Respiratory History: Moderate snoring Gastrointestinal History: Reports: Other (See Below) Other Gastrointestinal History: abdominal pain Genitourinary History: Reports: None 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 Musculoskeletal History: Reports: Other (See Below) 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 Neurological History: Reports: Concussion, Migraines Psychiatric History: Reports: Anxiety, Depression Other Psychiatric History: fatigue Endocrine/Metabolic History: Reports: None Hematologic History: Reports: Other (See Below) Other Hematologic History: superficial thrombophlebitis Immunologic History: Reports: None Oncologic (Cancer) History: Reports: None Dermatologic History: Reports: Eczema Other Dermatologic History: eczema on both medial calves - Infectious Disease History Infectious Disease History: Reports: None - Past Surgical History Head Surgeries/Procedures: Reports: None HEENT Surgical History: Reports: None Cardiovascular Surgical History: Reports: None Respiratory Surgical History: Reports: None GI Surgical History: Reports: Colonoscopy, EGD Female Surgical History: Reports: Breast Biopsy, Hysterectomy, Tubal Ligation Other Female Surgeries/Procedures: left breast surgery to remove cyst and duct; has had 2 other left breast surgeries in past Endocrine Surgical History: Reports: None Neurological Surgical History: Reports: None Musculoskeletal Surgical History: Reports: Shoulder Surgery Oncologic Surgical History: Reports: None Dermatological Surgical History: Reports: None - SUBSTANCE USE Tobacco Use Status *Q: Current Every Day Tobacco User Recreational Drug Use History: No - HOME MEDS Home Medications: Home Meds Albuterol [Ventolin HFA] 2 puff INH Q4H PRN 03/18/15 [History] Fluticasone Propion/Salmeterol [Advair 250-50 Diskus] 1 puff INH BID 12/09/20 [History] Triamcinolone Acetonide [Kenalog 0.1% Crm] 1 dose TOP BID 12/09/20 [History] Venlafaxine [Effexor XR] 150 mg PO DAILY 12/09/20 [History] Venlafaxine [Effexor] 75 mg PO DAILY 12/09/20 [History] hydrOXYzine pamoate [Vistaril] 25 mg PO QID PRN 12/09/20 [History] Ibuprofen 200 - 600 mg PO Q4H PRN 04/08/21 [History] - CURRENT (IN HOUSE) MEDS Current Meds: Current Medications Acetaminophen (Acetaminophen 325 Mg Tab) 975 mg PO ONETIME WILD Stop: 04/09/21 18:00 Albuterol (Albuterol 0.083% 2.5 Mg/3 Ml Neb Soln) 2.5 mg NEB ONETIME WILD Stop: 04/09/21 18:00 Gabapentin (Gabapentin 300 Mg Cap) 300 mg PO ONETIME WILD Stop: 04/09/21 18:00 Lactated Ringer's (Ringers, Lactated) 1,000 mls @ 125 mls/hr IV ASDIRECTED WILD Stop: 04/09/21 23:00 Lidocaine/Sodium Bicarbonate (Lidocaine 1%/Sod Bicarbonate In Ns 8.4% 1 Ml Syringe) 0.25 ml IDERM ONETIME PRN PRN Reason: Prior to IV Start Stop: 04/09/21 23:00 Sodium Chloride (Sodium Chloride 0.9% 10 Ml Syringe) 10 ml FLUSH ASDIRECTED PRN PRN Reason: Keep Vein Open Stop: 04/09/21 23:00 Discontinued Medications Loratadine (Loratadine 10 Mg Tab) 10 mg PO ONETIME ONE Stop: 04/09/21 08:18
[2021-04-09] MEDS ORDERED: Ondansetron 4 MG/2 ML SDV ONE (08:40)
[2021-04-09] MEDS ORDERED: fentaNYL 100 MCG/2 ML SDV ONE (08:40)
[2021-04-09] MEDS ORDERED: Propofol 200 MG/20 ML SDV ONE ×6 (08:40→10:45)
[2021-04-09] MEDS ORDERED: Midazolam 1 MG/ML 2 ML SDV ONE (08:40)
[2021-04-09] MEDS ORDERED: Lactated Ringers 1,000 ML ONE ×2 (08:40→10:48)
[2021-04-09] MEDS ORDERED: Lidocaine 1% 6 ML ONE (08:41)
[2021-04-09] MEDS ORDERED: Ketamine 500 mg/10 ML MDV ONE (08:41)
[2021-04-09] MEDS ORDERED: Dexamethasone 4 MG/ML 5 ML MDV ONE (08:46)
[2021-04-09] MEDS ORDERED: Bupivacaine 0.5%/EPINEPHrine 1:200,000 50 ML MDV ONE (09:04)
[2021-04-09] MEDS ORDERED: Lidocaine 1% with EPINEPHrine 1:100,000 10 ML MDV ONE ×2 (09:04→09:53)
[2021-04-09] MEDS ORDERED: Dexmedetomidine 200 MCG/2 ML SDV ONE (09:54)
[2021-04-09] MEDS ORDERED: Sodium Chloride 0.9% 100 ML ONE (09:55)
[2021-04-09] MEDS ORDERED: HYDROmorphone 0.5 MG/0.5 ML Syringe ONE ×2 (10:25→10:34)
[2021-04-09] MEDS ORDERED: Ondansetron 4 MG/2 ML SDV IVPUSH PRN (10:28)
[2021-04-09] MEDS ORDERED: fentaNYL 100 MCG/2 ML SDV IVPUSH PRN (10:28)
[2021-04-09] MEDS ORDERED: HYDROmorphone 0.5 MG/0.5 ML Syringe IVPUSH PRN (10:28)
--- NOTE | 2021-04-09 11:06 | PCM.OPNOTE ---
- General Post-Op/Procedure Note Date of Surgery/Procedure: 04/09/21 Operative Procedure(s): open hemorrhoidectomy Findings: internal hemorrhoids and external anal skin tags Pre Op Diagnosis: rectal bleeding Post-Op Diagnosis: same Anesthesia Technique: Local, MAC Primary Surgeon: Marilou Gamez Anesthesia Provider: Jaelyn Garcia Pathology: hemorrhoid cushions x3 Fluid Replacement, Intraop: 1,000 Output, Urine Amount: 0 EBL in mLs: 100 Complications: none apparent Condition: Good
--- NOTE | 2021-04-09 11:07 | PCM.PRNOTE ---
- Free Text/Narrative Note: Operative Report Date of surgery: April 09, 2021 Preoperative diagnosis: Rectal bleeding Postoperative diagnosis: same Procedure: Hemorroidectomy of 3 hemorrhoid cushions Surgeon: Dr. Marilou Gamez Anesthesia: MAC with local Laboratory Sampler: Kathy Pedroza CRNA Estimated blood loss: 100 mL IV fluids: 1000 mL Urine output: 0 mL Drains and lines: None Findings: Prominent internal hemorrhoids with anal skin tags Pathology: Hemorrhoids x3 Indication for the procedure: The patient is a 40-year-old female who presented to the clinic with complaints of rectal bleeding. She had previously undergone endoscopy with internal hemorrhoid banding. We discussed repeat banding. The patient wanted to do more definitive treatment. We discussed an open hemorrhoidectomy. We discussed the postoperative course of pain and difficulty with continence if too much tissue was removed. Discussed risks of bleeding and infection. Her written consent was obtained Description of the procedure: The patient was brought to the operating room and was placed in the supine position. After induction of MAC anesthesia, the legs were brought up in the lithotomy position and the patient was was prepped and draped in the usual sterile fashion. A surgical timeout was performed. A retractor was placed in the anus. Very prominent hemorrhoids was identified at the left lateral, right superior and right inferior locations. We began with the left lateral hemorrhoid. It was grasped with an Thelma clamp and also included the external anal skin tag. A scalpel was used to open the skin overlying the hemorrhoid, staying superficial to the sphincter muscle. The hemorrhoid was dissected off the underlying tissues with the Ligasure device. Hemorrhoid was then passed off as specimen. The mucosa was closed with a running 3-0 Vicryl, leaving the end-point epidermis open. Two other prominent hemorrhoids were then identified, at the right superior position and at the right inferior position. The right superior had an associated anal skin tag, and the right inferior hemorrhoid was larger than the other 2. These two hemorrhoids were excised in the exact same fashion as the first hemorrhoid. At the conclusion, there was no evidence of significant bleeding. The anal opening was palpated and found to be somewhat tight. The stitches were then clipped in 2 locations to facilitate adequate diameter. The [place] tissue was adequately removed. Gelfoam coated with Dibucaine ointment was then placed in the anus as a dressing and peripad with mesh underwear used as a dressing. The patient was then awakened and taken to the recovery room in good condition. There were no operative complications noted. Condition: Stable Marilou Gamez MD General surgery
[2021-04-09] MEDS ORDERED: Benzocaine/Menthol 20%-0.5% Spray 56 GM Canister TOP PRN (11:08)
--- NOTE | 2021-04-09 11:17 | PCM.POSTAN ---
POST ANESTHESIA ASSESSMENT - MENTAL STATUS Mental Status: Other (Drowsy) - VITAL SIGNS Vital Signs: Last Vital Signs Temp 36.9 C 04/09/21 08:00 Pulse 103 H 04/09/21 08:00 Resp 18 04/09/21 08:00 BP 134/84 04/09/21 08:00 Pulse Ox 100 04/09/21 08:50 1108 135/76 117 20 92% on 2 L/NC 97.3F - RESPIRATORY Respiratory Status: Respiratory Rate WNL, Airway Patent, O2 Saturation Stable, Supplemental Oxygen - CARDIOVASCULAR CV Status: Pulse Rate WNL, Blood Pressure Stable - GASTROINTESTINAL GI Status: No Symptoms - PAIN Pain Score: 0 - POST OP HYDRATION Hydration Status: Adequate & Stable
--- NOTE | 2021-04-09 12:03 | PCM48HPAN ---
Post Anesthesia Note - EVALUATION WITHIN 48HRS OF ANESTHETIC Vital Signs in Normal Range: Yes Patient Participated in Evaluation: Yes Respiratory Function Stable: Yes Airway Patent: Yes Cardiovascular Function Stable: Yes Hydration Status Stable: Yes Pain Control Satisfactory: Yes Nausea and Vomiting Control Satisfactory: Yes Mental Status Recovered: Yes Vital Signs: Last Vital Signs Temp 36.3 C 04/09/21 11:08 Pulse 109 H 04/09/21 11:30 Resp 20 04/09/21 11:30 BP 114/54 L 04/09/21 11:30 Pulse Ox 94 L 04/09/21 11:30 Baseline SPO2 94%.
[2021-04-09 12:56] VITALS: BP 112/59; PULSE 101
== END 2021-04-09 12:15 | disposition home or self-care (01) ==
LOC: JD.SDS 07:49
PROVIDERS: ATTEND Surgery
DX: K64.8 Other hemorrhoids (principal); K64.4 Residual hemorrhoidal skin tags; F17.210 Nicotine dependence, cigarettes, uncomplicated; J45.909 Unspecified asthma, uncomplicated; Z98.890 Other specified postprocedural states; Z91.041 Radiographic dye allergy status
CPT/HCPCS: 46260; 94640; A9270; J1100; J1170; J2250; J2405; J2704; J3010; J3490; J7120; 00902

== ENCOUNTER 2022-02-03 06:51 | Day surgery (SDC) | payer MEDICAID ==
[2022-02-03] MEDS ORDERED: Sodium Chloride 0.9% 10 ML Syringe FLUSH PRN (07:00)
[2022-02-03] MEDS ORDERED: Lidocaine 1%/Sod Bicarbonate in NS 8.4% 1 ML Syringe IDERM ONE (07:00)
[2022-02-03] MEDS ORDERED: Lactated Ringers 1,000 ML IV ONE (07:00)
[2022-02-03] MEDS ORDERED: Bupivacaine 0.5%/EPINEPHrine 1:200,000 50 ML MDV ONE (07:40)
[2022-02-03] MEDS ORDERED: Lidocaine 1% with EPINEPHrine 1:100,000 10 ML MDV ONE (07:40)
[2022-02-03] MEDS ORDERED: Propofol 200 MG/20 ML SDV ONE ×2 (07:53→08:30)
[2022-02-03] MEDS ORDERED: Lidocaine 1% 4 ML ONE (07:54)
[2022-02-03] MEDS ORDERED: Midazolam 1 MG/ML 2 ML SDV ONE (07:54)
[2022-02-03] MEDS ORDERED: fentaNYL 100 MCG/2 ML SDV ONE (07:54)
[2022-02-03] MEDS ORDERED: ceFAZolin 1 GM Vial ONE (08:27)
[2022-02-03] MEDS ORDERED: Ondansetron 4 MG/2 ML SDV ONE (08:27)
[2022-02-03] MEDS ORDERED: HYDROmorphone 0.5 MG/0.5 ML Syringe ONE (08:37)
[2022-02-03] MEDS ORDERED: Ketorolac 15 MG/ML SDV ONE (08:45)
[2022-02-03] MEDS ORDERED: fentaNYL 100 MCG/2 ML SDV IVPUSH PRN (09:00)
[2022-02-03] MEDS ORDERED: Ondansetron 4 MG/2 ML SDV IVPUSH PRN (09:00)
[2022-02-03] MEDS ORDERED: HYDROmorphone 0.5 MG/0.5 ML Syringe IVPUSH PRN (09:00)
[2022-02-03] MEDS ORDERED: Acetaminophen/oxyCODONE 325-5 MG Tab PO ONE (09:49)
[2022-02-03 11:55] VITALS: BP 115/70; PULSE 90
== END 2022-02-03 10:53 | disposition home or self-care (01) ==
LOC: JD.SDS 06:51
PROVIDERS: ATTEND Surgery
DX: N61.1 Abscess of the breast and nipple (principal); J45.909 Unspecified asthma, uncomplicated; K21.9 Gastro-esophageal reflux disease without esophagitis; F17.200 Nicotine dependence, unspecified, uncomplicated; F32.A Depression, unspecified; F41.9 Anxiety disorder, unspecified; Z91.041 Radiographic dye allergy status; Z91.048 Other nonmedicinal substance allergy status; Z98.890 Other specified postprocedural states; Z90.710 Acquired absence of both cervix and uterus; Z79.51 Long term (current) use of inhaled steroids; Z79.899 Other long term (current) drug therapy
CPT/HCPCS: 19020; 87070; 87075; 87205; A9270; J0690; J1170; J1885; J2250; J2405; J2704; J3010; J3490; J7120

== ENCOUNTER 2022-02-07 20:11 | Emergency (ER) | payer MEDICAID ==
[2022-02-07 20:29] VITALS: BP 155/84; PULSE 100
[2022-02-07] MEDS ORDERED: Ondansetron 4 MG Tab.DIS PO ONE (20:35)
[2022-02-07] MEDS ORDERED: metroNIDAZOLE 500 MG Tab PO ONE (20:35)
[2022-02-07] MEDS ORDERED: HYDROmorphone 1 MG/ML Syringe IM ONE (20:35)
== END 2022-02-07 21:01 | disposition home or self-care (01) ==
LOC: JD.ED 20:11
DX: N61.0 Mastitis without abscess (principal); J45.909 Unspecified asthma, uncomplicated; F17.210 Nicotine dependence, cigarettes, uncomplicated; Z90.710 Acquired absence of both cervix and uterus; Z79.899 Other long term (current) drug therapy; Z91.041 Radiographic dye allergy status; Z91.048 Other nonmedicinal substance allergy status
CPT/HCPCS: 96372; 99283; A9270; J1170

== ENCOUNTER 2022-10-08 17:30 | Emergency (ER) | payer MEDICAID ==
[2022-10-08] MEDS ORDERED: HYDROmorphone 1 MG/ML Syringe IM ONE (18:13)
[2022-10-08 18:15] VITALS: BP 123/66; PULSE 102
== END 2022-10-08 20:07 | disposition home or self-care (01) ==
LOC: JD.ED 17:30
DX: S82.831A Other fracture of upper and lower end of right fibula, initial encounter for closed fracture (principal); F17.210 Nicotine dependence, cigarettes, uncomplicated; Z91.048 Other nonmedicinal substance allergy status; Z91.041 Radiographic dye allergy status; W01.0XXA Fall on same level from slipping, tripping and stumbling without subsequent striking against object, initial encounter
CPT/HCPCS: 29515; 73590; 96372; 99283; J1170; 73630-26-RT; 73630-RT

== ENCOUNTER 2022-10-19 19:07 | Emergency (ER) | payer MEDICAID ==
[2022-10-19] MEDS ORDERED: Ketorolac 60 MG/2 ML SDV IM ONE (19:37)
[2022-10-19 22:32] VITALS: BP 125/77; PULSE 95
== END 2022-10-19 21:35 | disposition home or self-care (01) ==
LOC: JD.ED 19:07
DX: S82.831A Other fracture of upper and lower end of right fibula, initial encounter for closed fracture (principal); F17.210 Nicotine dependence, cigarettes, uncomplicated; Z91.048 Other nonmedicinal substance allergy status; Z91.041 Radiographic dye allergy status; Z79.899 Other long term (current) drug therapy; Z86.16 Personal history of COVID-19; W19.XXXA Unspecified fall, initial encounter
CPT/HCPCS: 73590; 96372; 99283; J1885

== ENCOUNTER 2022-10-22 09:24 | Emergency (ER) | payer MEDICAID ==
[2022-10-22 09:44] VITALS: BP 109/67; PULSE 103
[2022-10-22] MEDS ORDERED: Ondansetron 4 MG/2 ML SDV IVPUSH ONE (10:34)
[2022-10-22] MEDS ORDERED: Sodium Chloride 0.9% 1,000 ML IV ONE (10:34)
[2022-10-22] MEDS ORDERED: Sodium Chloride 0.9% 10 ML Syringe FLUSH PRN ×2 (10:34→10:38)
[2022-10-22] MEDS ORDERED: Iopamidol 612 MG/ML 100 ML Bottle IVPUSH ONE (10:38)
[2022-10-22] MEDS ORDERED: LORazepam 2 MG/ML SDV IVPUSH ONE (10:50)
[2022-10-22] MEDS ORDERED: diphenhydrAMINE 50 MG/ML SDV IVPUSH ONE (11:52)
[2022-10-22] MEDS ORDERED: Magnesium Sulfate/Water 2 GM in Premix Bag 1 BAG IV ONE (14:19)
[2022-10-22] MEDS ORDERED: Potassium Bicarbonate/Cit Ac 20 MEQ Effervescent Tab PO ONE (14:19)
[2022-10-22] MEDS: Potassium Chloride 10 MEQ in Premix Bag 1 BAG IV SCH ×3 (16:12→16:49)
[2022-10-22] MEDS ORDERED: Sodium Chloride 0.9% 250 ML ONE (16:58)
[2022-10-22] MEDS ORDERED: Sodium Chloride 0.9% 250 ML IV SCH (17:15)
== END 2022-10-22 19:35 | disposition home or self-care (01) ==
LOC: JD.ED 09:24
DX: R53.1 Weakness (principal); E86.0 Dehydration; R11.2 Nausea with vomiting, unspecified; E87.6 Hypokalemia; J45.909 Unspecified asthma, uncomplicated; F17.210 Nicotine dependence, cigarettes, uncomplicated; Z86.16 Personal history of COVID-19; Z91.048 Other nonmedicinal substance allergy status; Z91.041 Radiographic dye allergy status; Z79.899 Other long term (current) drug therapy
CPT/HCPCS: 36415; 72148; 74177; 80053; 81025; 83690; 84443; 85025; 86140; 96361; 96365; 96366; 96375; 99285; A9270; J1200; J2060; J2405; J3475; J3480; J3490; J7030; J7050; Q9967; 99284

== ENCOUNTER 2022-10-26 17:37 | Emergency (ER) | payer MEDICAID ==
[2022-10-26 17:50] VITALS: PULSE 92
[2022-10-26] MEDS ORDERED: Ondansetron 4 MG/2 ML SDV IVPUSH ONE (18:04)
[2022-10-26 19:23] LABS: CORONAVIRUS COVID-19 NAA NEGATIVE (NEGATIVE)
[2022-10-26] MEDS ORDERED: traZODone 50 MG Tab PO ONE (22:14)
[2022-10-26] MEDS ORDERED: cloNIDine 0.1 MG Tab PO ONE (22:15)
[2022-10-26 22:36] VITALS: BP 139/89
== END 2022-10-26 22:35 ==
LOC: JD.ED 17:37
DX: G61.0 Guillain-Barre syndrome (principal); R53.1 Weakness; J45.909 Unspecified asthma, uncomplicated; Z91.048 Other nonmedicinal substance allergy status; Z91.041 Radiographic dye allergy status; Z79.899 Other long term (current) drug therapy; Z72.0 Tobacco use; Z20.822 Contact with and (suspected) exposure to COVID-19
CPT/HCPCS: 0240U; 36415; 51701; 70450; 80053; 81001; 83735; 85025; 86140; 96374; 99285; A9270; J2405

== ENCOUNTER 2022-12-19 00:41 | Emergency (ER) | payer MEDICAID ==
[2022-12-19 01:14] VITALS: BP 142/88; PULSE 124
[2022-12-19 02:05] LABS: ESTIMATED GFR 81 mL/min (>60)
== END 2022-12-19 08:58 | disposition home or self-care (01) ==
LOC: JD.ED 00:41
DX: M62.838 Other muscle spasm (principal); G62.9 Polyneuropathy, unspecified; Z91.048 Other nonmedicinal substance allergy status; Z91.041 Radiographic dye allergy status; Z79.899 Other long term (current) drug therapy; Z86.16 Personal history of COVID-19; Z72.0 Tobacco use
CPT/HCPCS: 36415; 80053; 80306; 83735; 85025; 99283; 99284

== ENCOUNTER 2023-10-09 12:33 | Emergency (ER) | payer MEDICAID ==
[2023-10-09] MEDS ORDERED: Ketorolac 60 MG/2 ML SDV IM ONE (14:24)
[2023-10-09] MEDS ORDERED: Sulfamethoxazole/Trimethoprim 800-160 MG Tab PO ONE (16:10)
[2023-10-09 16:55] VITALS: BP 113/69; PULSE 84
== END 2023-10-09 16:46 | disposition home or self-care (01) ==
LOC: JD.ED 12:33
DX: N61.1 Abscess of the breast and nipple (principal); Z79.899 Other long term (current) drug therapy; Z90.710 Acquired absence of both cervix and uterus; Z91.048 Other nonmedicinal substance allergy status; Z91.041 Radiographic dye allergy status
CPT/HCPCS: 76642; 96372; 99283; A9270; J1885

== ENCOUNTER 2024-01-22 13:30 | Emergency (ER) | payer MEDICAID ==
[2024-01-22 14:31] LABS: BASOPHILS ABSOLUTE AUTO 0.1 K/mm3 (0.0-0.2); BASOPHILS PERCENT AUTO 0.8 % (0.0-1.0); EOSINOPHILS ABSOLUTE AUTO 0.1 K/mm3 (0.0-0.4); EOSINOPHILS PERCENT AUTO 0.7 % (0.0-6.0); HEMATOCRIT 43.2 % (37.0-47.0); IMMATURE GRAN ABSOLUTE AUTO 0.04 K/mm3 (0.00-0.05); IMMATURE GRAN PERCENT AUTO 0.3 % (0.0-0.4); LYMPHOCYTES ABSOLUTE AUTO 4.1 K/mm3 (1.0-4.8); LYMPHOCYTES PERCENT AUTO 30.6 % (24.0-44.0); MEAN CORPUSCULAR HEMOGLOBIN 30.3 pg (28.0-32.0); MEAN CORPUSCULAR HGB CONC 32.4 g/dl (32.0-36.0); MEAN CORPUSCULAR VOLUME 93.5 fl (83.0-99.0); MEAN PLATELET VOLUME 10.7 fl (9.4-12.3); MONOCYTES ABSOLUTE AUTO 0.7 K/mm3 (0.0-0.8); MONOCYTES PERCENT AUTO 5.3 % (0.0-8.0); NEUTROPHILS ABSOLUTE AUTO 8.3 K/mm3 (1.8-7.7); NEUTROPHILS PERCENT AUTO 62.3 % (41.0-71.0); PLATELET COUNT,PLT 296 K/mm3 (150-400); RED BLOOD CELL COUNT 4.62 M/mm3 (4.10-5.30); WHITE BLOOD CELL COUNT,WBC 13.28 K/mm3 (3.9-11.3)
[2024-01-22] MEDS: diphenhydrAMINE 50 MG/ML SDV IVPUSH ONE (14:52)
[2024-01-22] MEDS: Sodium Chloride 0.9% 1,000 ML IV SCH (14:52)
[2024-01-22] MEDS: Metoclopramide 10 MG/2 ML SDV IVPUSH ONE (14:55)
[2024-01-22] MEDS: Sodium Chloride 0.9% 10 ML Syringe FLUSH PRN (14:56)
[2024-01-22 15:06] LABS: A/G RATIO 0.9 (1-2); ALBUMIN 3.5 g/dl (3.4-5.0); ANION GAP 10.5 (5-15); BILIRUBIN TOTAL 0.2 mg/dL (0.2-1.0); C-REACTIVE PROTEIN 0.77 mg/dL (<0.30); CALCIUM 8.8 mg/dL (8.5-10.1); EST CRCL DRUG DOSING (CG) 53.61 mL/min; POTASSIUM,K 4.5 mEq/L (3.5-5.1); PROTEIN TOTAL,TP 7.3 g/dl (6.4-8.2)
[2024-01-22] MEDS ORDERED: Ketorolac 30 MG/ML SDV IVPUSH ONE (15:40)
[2024-01-22 17:02] VITALS: BP 114/68; PULSE 75
== END 2024-01-22 17:04 | disposition home or self-care (01) ==
LOC: JD.ED 13:30
DX: R51.9 Headache, unspecified (principal); R11.0 Nausea; I10 Essential (primary) hypertension; K21.9 Gastro-esophageal reflux disease without esophagitis; Z91.048 Other nonmedicinal substance allergy status; Z91.041 Radiographic dye allergy status; Z79.899 Other long term (current) drug therapy; Z86.16 Personal history of COVID-19; Z90.710 Acquired absence of both cervix and uterus
CPT/HCPCS: 36415; 70450; 80053; 80307; 83690; 84703; 85025; 86140; 96374; 96375; 99284; J1200; J2765; J3490; J7030

== ENCOUNTER 2025-04-22 14:26 | Inpatient (IN) | payer MEDICAID ==
[2025-04-22] MEDS: Furosemide 40 MG/4 ML VIAL IVPUSH ONE (15:10)
[2025-04-22 15:13] LABS: BASOPHILS ABSOLUTE AUTO 0.1 K/mm3 (0.0-0.2); BASOPHILS PERCENT AUTO 0.7 % (0.0-1.0); EOSINOPHILS ABSOLUTE AUTO 0.0 K/mm3 (0.0-0.4); EOSINOPHILS PERCENT AUTO 0.1 % (0.0-6.0); IMMATURE GRAN ABSOLUTE AUTO 0.31 K/mm3 (0.00-0.05); IMMATURE GRAN PERCENT AUTO 2.1 % (0.0-0.4); LYMPHOCYTES ABSOLUTE AUTO 2.0 K/mm3 (1.0-4.8); LYMPHOCYTES PERCENT AUTO 13.1 % (24.0-44.0); MEAN PLATELET VOLUME 11.4 fl (9.4-12.3); MONOCYTES ABSOLUTE AUTO 1.0 K/mm3 (0.0-0.8); MONOCYTES PERCENT AUTO 6.6 % (0.0-8.0); NEUTROPHILS ABSOLUTE AUTO 11.5 K/mm3 (1.8-7.7); NEUTROPHILS PERCENT AUTO 77.4 % (41.0-71.0); NRBC ABSOLUTE 0.31 (0.00-0.02); NRBC PERCENT 2.1 % (0.0-0.2); PLATELET COUNT,PLT 158 K/mm3 (150-400); RED BLOOD CELL COUNT 5.18 M/mm3 (4.10-5.30); WHITE BLOOD CELL COUNT,WBC 14.90 K/mm3 (3.9-11.3)
[2025-04-22 15:16] LABS: O2 SATURATION ARTERIAL 87.1 % (96.0-97.0); PCO2 ARTERIAL 72.0 mmHg (35.0-45.0); PO2 ARTERIAL 56.0 mmHg (80.0-100.0)
[2025-04-22 15:17] LABS: BASE EXCESS ARTERIAL 3.7 (-2-2.0); BICARBONATE,ARTERIAL 33.8 meq/L (22.0-26.0)
[2025-04-22 15:25] LABS: APPEARANCE,URINE CLEAR (Clear); GLUCOSE,URINE NEGATIVE (Negative); OCCULT BLOOD,URINE 3+ (Negative)
[2025-04-22] MEDS: Naloxone 0.4 MG/ML SDV ONE (15:32)
[2025-04-22 15:34] LABS: INR 1.11
[2025-04-22 15:36] LABS: BUPRENORPHINE SCREEN,URINE NEGATIVE (CUTOFF=10); METHADONE SCREEN, URINE NEGATIVE (CUTOFF=200); METHAMPHETAMINES SCREEN, URINE NEGATIVE (CUTOFF=500); OXYCODONE SCREEN,URINE NEGATIVE (CUT0FF=100); THC SCREEN,URINE 20 NG/ML NEGATIVE (CUTOFF=50)
[2025-04-22 15:42] LABS: AMPHETAMINES SCREEN, URINE NEGATIVE (CUTOFF=500)
[2025-04-22 15:58] LABS: A/G RATIO 0.8 (1-2); ALANINE AMINOTRANSFERASE,ALT 132 U/L (14-59); ASPARTATE AMNIOTRANSFERASE,AST 295 U/L (15-37); BILIRUBIN TOTAL 0.6 mg/dL (0.2-1.0); BLOOD UREA NITROGEN,BUN 13 mg/dL (7-18); CARBON DIOXIDE,CO2 31 mEq/L (21-32); CHLORIDE,CL 96 mEq/L (98-107); CREATININE 2.7 mg/dL (0.55-1.02); ESTIMATED GFR 21 mL/min (>60); GLUCOSE RANDOM 126 mg/dL (70-99); POTASSIUM,K 5.5 mEq/L (3.5-5.1); PROTEIN TOTAL,TP 7.8 g/dl (6.4-8.2); SODIUM,NA 137 mEq/L (136-145); TSH 1.368 uIU/mL (0.358-3.74)
[2025-04-22 16:04] LABS: CREATINE KINASE,CK 4569 U/L (26-192)
[2025-04-22 16:05] LABS: ETHANOL BLOOD MEDICAL 0.00 gm% (0.00); TROPONIN I HIGH SENSITIVITY 611 pg/mL (<=51)
[2025-04-22 16:46] LABS: BASE EXCESS ARTERIAL 0.3 (-2-2.0); BICARBONATE,ARTERIAL 28.5 meq/L (22.0-26.0); O2 SATURATION ARTERIAL 95.9 % (96.0-97.0); PCO2 ARTERIAL 58.0 mmHg (35.0-45.0); PO2 ARTERIAL 71.0 mmHg (80.0-100.0)
[2025-04-22 16:47] LABS: PATIENT RESPIRATORY RATE 20.0 /MIN
[2025-04-22] MEDS: LORazepam 2 MG/ML SDV ONE (17:00)
[2025-04-22] MEDS: LORazepam 2 MG/ML SDV IVPUSH ONE (17:00)
[2025-04-22] MEDS: VANCOmycin 2 GM/400 ML 2 GM in Premix Bag 1 BAG IV ONE (17:46)
[2025-04-22 20:47] LABS: BLOOD UREA NITROGEN,BUN 17.0 mg/dL (7-18); CARBON DIOXIDE,CO2 27.0 mEq/L (21-32); CREATININE 2.8 mg/dL (0.55-1.02); EST CRCL DRUG DOSING (CG) 22.59 mL/min; ESTIMATED GFR 20.0 mL/min (>60); GLUCOSE RANDOM 155.0 mg/dL (70-99)
[2025-04-22 21:17] LABS: CHLORIDE,CL 98.0 mEq/L (98-107); POTASSIUM,K 5.9 mEq/L (3.5-5.1); SODIUM,NA 136.0 mEq/L (136-145)
[2025-04-22] MEDS: Insulin Regular, Human 100 Units/ML 10 ML Vial IV ONE (22:09)
[2025-04-22] MEDS: 50% Dextrose in Water 50 ML Syringe IVPUSH ONE (22:10)
[2025-04-22 22:52] LABS: CREATININE,URINE RAND 111.9 mg/dL (30.0-125.0); PROTEIN CREATININE RATIO,URINE 1467.4 mg/g (0-149); PROTEIN,URINE RANDOM 164.2 mg/dL (0.0-11.8)
[2025-04-23 06:05] LABS: BASOPHILS ABSOLUTE AUTO 0.0 K/mm3 (0.0-0.2); BASOPHILS PERCENT AUTO 0.3 % (0.0-1.0); EOSINOPHILS ABSOLUTE AUTO 0.0 K/mm3 (0.0-0.4); EOSINOPHILS PERCENT AUTO 0.1 % (0.0-6.0); IMMATURE GRAN ABSOLUTE AUTO 0.10 K/mm3 (0.00-0.05); IMMATURE GRAN PERCENT AUTO 0.7 % (0.0-0.4); LYMPHOCYTES ABSOLUTE AUTO 2.0 K/mm3 (1.0-4.8); LYMPHOCYTES PERCENT AUTO 15.1 % (24.0-44.0); MEAN PLATELET VOLUME 12.0 fl (9.4-12.3); MONOCYTES ABSOLUTE AUTO 0.9 K/mm3 (0.0-0.8); MONOCYTES PERCENT AUTO 6.8 % (0.0-8.0); NEUTROPHILS ABSOLUTE AUTO 10.3 K/mm3 (1.8-7.7); NEUTROPHILS PERCENT AUTO 77.0 % (41.0-71.0); NRBC ABSOLUTE 0.16 (0.00-0.02); NRBC PERCENT 1.2 % (0.0-0.2); PLATELET COUNT,PLT 135 K/mm3 (150-400); RED BLOOD CELL COUNT 5.05 M/mm3 (4.10-5.30); WHITE BLOOD CELL COUNT,WBC 13.34 K/mm3 (3.9-11.3)
[2025-04-23 06:44] LABS: A/G RATIO 0.7 (1-2); BILIRUBIN TOTAL 0.5 mg/dL (0.2-1.0); BLOOD UREA NITROGEN,BUN 20.0 mg/dL (7-18); CARBON DIOXIDE,CO2 30.0 mEq/L (21-32); CHLORIDE,CL 100.0 mEq/L (98-107); CREATININE 2.4 mg/dL (0.55-1.02); EST CRCL DRUG DOSING (CG) 26.36 mL/min; ESTIMATED GFR 25.0 mL/min (>60); GLUCOSE RANDOM 118.0 mg/dL (70-99); PROTEIN TOTAL,TP 6.9 g/dl (6.4-8.2); SODIUM,NA 140.0 mEq/L (136-145)
[2025-04-23 07:30] LABS: CREATINE KINASE,CK 8205.0 U/L (26-192)
[2025-04-23 07:31] LABS: ALANINE AMINOTRANSFERASE,ALT 307.0 U/L (14-59); ASPARTATE AMNIOTRANSFERASE,AST 1029.0 U/L (15-37); TROPONIN I HIGH SENSITIVITY 1534.0 pg/mL (<=51)
[2025-04-23 07:32] LABS: POTASSIUM,K 3.9 mEq/L (3.5-5.1)
[2025-04-23 08:21] LABS: BASE EXCESS ARTERIAL 4.7 (-2-2.0); BICARBONATE,ARTERIAL 32.2 meq/L (22.0-26.0); O2 SATURATION ARTERIAL 94.9 % (96.0-97.0); PCO2 ARTERIAL 57.0 mmHg (35.0-45.0); PO2 ARTERIAL 71.0 mmHg (80.0-100.0)
[2025-04-23] MEDS: Heparin Sodium 5,000 Units/ML Vial SUBCUT SCH (12:45)
[2025-04-24 04:37] LABS: BASOPHILS ABSOLUTE AUTO 0.1 K/mm3 (0.0-0.2); BASOPHILS PERCENT AUTO 0.5 % (0.0-1.0); EOSINOPHILS ABSOLUTE AUTO 0.1 K/mm3 (0.0-0.4); EOSINOPHILS PERCENT AUTO 0.5 % (0.0-6.0); IMMATURE GRAN ABSOLUTE AUTO 0.06 K/mm3 (0.00-0.05); IMMATURE GRAN PERCENT AUTO 0.6 % (0.0-0.4); LYMPHOCYTES ABSOLUTE AUTO 2.0 K/mm3 (1.0-4.8); LYMPHOCYTES PERCENT AUTO 19.6 % (24.0-44.0); MEAN PLATELET VOLUME 12.2 fl (9.4-12.3); MONOCYTES ABSOLUTE AUTO 0.4 K/mm3 (0.0-0.8); MONOCYTES PERCENT AUTO 4.3 % (0.0-8.0); NEUTROPHILS ABSOLUTE AUTO 7.6 K/mm3 (1.8-7.7); NEUTROPHILS PERCENT AUTO 74.5 % (41.0-71.0); NRBC ABSOLUTE 0.08 (0.00-0.02); NRBC PERCENT 0.8 % (0.0-0.2); PLATELET COUNT,PLT 120 K/mm3 (150-400); RED BLOOD CELL COUNT 4.18 M/mm3 (4.10-5.30); WHITE BLOOD CELL COUNT,WBC 10.24 K/mm3 (3.9-11.3)
[2025-04-24 05:09] LABS: A/G RATIO 0.7 (1-2); ALANINE AMINOTRANSFERASE,ALT 313.0 U/L (14-59); ASPARTATE AMNIOTRANSFERASE,AST 636.0 U/L (15-37); BILIRUBIN TOTAL 0.3 mg/dL (0.2-1.0); BLOOD UREA NITROGEN,BUN 16.0 mg/dL (7-18); CARBON DIOXIDE,CO2 32.0 mEq/L (21-32); CHLORIDE,CL 106.0 mEq/L (98-107); CREATININE 1.3 mg/dL (0.55-1.02); EST CRCL DRUG DOSING (CG) 48.66 mL/min; ESTIMATED GFR 51.0 mL/min (>60); GLUCOSE RANDOM 121.0 mg/dL (70-99); POTASSIUM,K 3.7 mEq/L (3.5-5.1); PROTEIN TOTAL,TP 6.0 g/dl (6.4-8.2); SODIUM,NA 143.0 mEq/L (136-145)
[2025-04-24] MEDS: Venlafaxine 75 MG Cap.ER PO SCH (08:36)
[2025-04-24] MEDS: Acetaminophen/HYDROcodone 325-10 MG Tab PO PRN (15:27)
[2025-04-25 04:27] LABS: BASOPHILS ABSOLUTE AUTO 0.0 K/mm3 (0.0-0.2); BASOPHILS PERCENT AUTO 0.5 % (0.0-1.0); EOSINOPHILS ABSOLUTE AUTO 0.1 K/mm3 (0.0-0.4); EOSINOPHILS PERCENT AUTO 0.9 % (0.0-6.0); IMMATURE GRAN ABSOLUTE AUTO 0.04 K/mm3 (0.00-0.05); IMMATURE GRAN PERCENT AUTO 0.5 % (0.0-0.4); LYMPHOCYTES ABSOLUTE AUTO 2.3 K/mm3 (1.0-4.8); LYMPHOCYTES PERCENT AUTO 28.3 % (24.0-44.0); MEAN PLATELET VOLUME 12.4 fl (9.4-12.3); MONOCYTES ABSOLUTE AUTO 0.5 K/mm3 (0.0-0.8); MONOCYTES PERCENT AUTO 5.8 % (0.0-8.0); NEUTROPHILS ABSOLUTE AUTO 5.1 K/mm3 (1.8-7.7); NEUTROPHILS PERCENT AUTO 64.0 % (41.0-71.0); NRBC ABSOLUTE 0.07 (0.00-0.02); NRBC PERCENT 0.9 % (0.0-0.2); PLATELET COUNT,PLT 121 K/mm3 (150-400); RED BLOOD CELL COUNT 4.09 M/mm3 (4.10-5.30); WHITE BLOOD CELL COUNT,WBC 7.94 K/mm3 (3.9-11.3)
[2025-04-25 04:52] LABS: A/G RATIO 0.7 (1-2); ALANINE AMINOTRANSFERASE,ALT 444.0 U/L (14-59); ASPARTATE AMNIOTRANSFERASE,AST 741.0 U/L (15-37); BILIRUBIN TOTAL 0.5 mg/dL (0.2-1.0); BLOOD UREA NITROGEN,BUN 11.0 mg/dL (7-18); CARBON DIOXIDE,CO2 31.0 mEq/L (21-32); CHLORIDE,CL 106.0 mEq/L (98-107); CREATININE 0.9 mg/dL (0.55-1.02); EST CRCL DRUG DOSING (CG) 70.28 mL/min; ESTIMATED GFR 80.0 mL/min (>60); GLUCOSE RANDOM 103.0 mg/dL (70-99); POTASSIUM,K 3.8 mEq/L (3.5-5.1); PROTEIN TOTAL,TP 6.1 g/dl (6.4-8.2); SODIUM,NA 143.0 mEq/L (136-145)
[2025-04-25] MEDS: Lactated Ringers 1,000 ML IV SCH (10:41)
[2025-04-25] MEDS ORDERED: Sennosides/Docusate Sodium 50-8.6 MG Tab PO PRN (16:20)
[2025-04-26 05:27] LABS: A/G RATIO 0.7 (1-2); ALANINE AMINOTRANSFERASE,ALT 386.0 U/L (14-59); ASPARTATE AMNIOTRANSFERASE,AST 397.0 U/L (15-37); BILIRUBIN TOTAL 0.6 mg/dL (0.2-1.0); BLOOD UREA NITROGEN,BUN 10.0 mg/dL (7-18); CARBON DIOXIDE,CO2 30.0 mEq/L (21-32); CHLORIDE,CL 104.0 mEq/L (98-107); CREATININE 0.7 mg/dL (0.55-1.02); EST CRCL DRUG DOSING (CG) 90.36 mL/min; ESTIMATED GFR 108.0 mL/min (>60); GLUCOSE RANDOM 104.0 mg/dL (70-99); PHOSPHORUS 4.0 mg/dL (2.6-4.7); POTASSIUM,K 3.9 mEq/L (3.5-5.1); PROTEIN TOTAL,TP 6.3 g/dl (6.4-8.2); SODIUM,NA 141.0 mEq/L (136-145)
[2025-04-26 05:41] LABS: CREATINE KINASE,CK 1754.0 U/L (26-192)
[2025-04-26 15:46] VITALS: BP 124/73; PULSE 81
== END 2025-04-26 14:31 | disposition home health service (06) | DRG 917 ==
LOC: JD.ED 14:26 → JD.ICU 19:05 → JD.MS 04-24 19:07
PROVIDERS: ADMIT Family Medicine; ATTEND Student in an Organized Health Care Education/Training Program
PROC: 3E03329 Introduction of Other Anti-infective into Peripheral Vein, Percutaneous Approach (ICD-10-PCS; principal; 2025-04-22)
PROC: 4A033R1 Measurement of Arterial Saturation, Peripheral, Percutaneous Approach (ICD-10-PCS; 2025-04-22)
PROC: 5A09357 Assistance with Respiratory Ventilation, Less than 24 Consecutive Hours, Continuous Positive Airway Pressure (ICD-10-PCS; 2025-04-22)
DX: G93.41 Metabolic encephalopathy (principal); J96.92 Respiratory failure, unspecified with hypercapnia; J96.91 Respiratory failure, unspecified with hypoxia; T40.2X1A Poisoning by other opioids, accidental (unintentional), initial encounter; G92.8 Other toxic encephalopathy; J96.21 Acute and chronic respiratory failure with hypoxia; R60.0 Localized edema; J96.22 Acute and chronic respiratory failure with hypercapnia; I21.A1 Myocardial infarction type 2; E87.20 Acidosis, unspecified; M62.82 Rhabdomyolysis; N17.9 Acute kidney failure, unspecified; J98.11 Atelectasis; N39.0 Urinary tract infection, site not specified; M54.50 Low back pain, unspecified; G89.29 Other chronic pain; H54.7 Unspecified visual loss; I10 Essential (primary) hypertension; K21.9 Gastro-esophageal reflux disease without esophagitis; E87.5 Hyperkalemia; F10.90 Alcohol use, unspecified, uncomplicated; G62.9 Polyneuropathy, unspecified; L21.9 Seborrheic dermatitis, unspecified; R74.01 Elevation of levels of liver transaminase levels; S41.102A Unspecified open wound of left upper arm, initial encounter; F32.A Depression, unspecified; I25.10 Atherosclerotic heart disease of native coronary artery without angina pectoris; I27.20 Pulmonary hypertension, unspecified; Z79.891 Long term (current) use of opiate analgesic; Y92.89 Other specified places as the place of occurrence of the external cause; Z91.048 Other nonmedicinal substance allergy status; Z91.041 Radiographic dye allergy status; Z79.899 Other long term (current) drug therapy; Z98.890 Other specified postprocedural states; Z86.16 Personal history of COVID-19; Z90.710 Acquired absence of both cervix and uterus; Z98.51 Tubal ligation status
CPT/HCPCS: 36415; 36600 ×2; 51702; 70450; 70486; 71250; 74176; 80053; 80143; 80179; 80306; 80307; 81001; 81025; 82550; 82570; 82803 ×2; 83605; 83690; 83735; 83880; 84156; 84443; 84484; 85025; 85610; 87040 ×2; 93005; 94660; 96365; 96367; 96375; 99285; J1938; J2310; J2543; J3372; J7030; 71045; 71045-26; 80048; 84100; 93010; 93306; 94640; 94667; 94668; 94761; 94762; 97110-GP; 97116-GP; 97161-GP; 97530-GP; A9270-GY; J0696; J1644; J1650; J1815-GY; J7120